=== PATIENT | male | born 1950 | race Caucasian/White ===

== ENCOUNTER 2018-02-18 09:12 | Emergency (ER) | payer OTHER, SELFPAY ==
[2018-02-18] MEDS ORDERED: KETOROLAC 30 MG/ML INJ ONE (09:53)
[2018-02-18 10:04] LABS: Absolute Lymphocytes (CBC) 1.7 K/uL (0.7-4.9); Absolute Monocytes 0.6 K/uL (0.1-1.3); Absolute Neutrophil 7.4 K/uL (1.8-8.0); Basophils % 0.9 % (0-1.3); Eosinophils % 1.6 % (0-4.4); Hematocrit 42.8 % (39.6-49.0); Lymphocytes % 16.8 % (15.3-44.8); MCH 31.3 pg (27.0-35.0); MCV 91.4 fL (80-100); MPV 8.9 fL (7.6-11.3); Monocytes % 5.9 % (3.3-12.3); RBC Red Blood Cell Count 4.68 M/uL (4.33-5.43)
[2018-02-18 10:19] LABS: Protime INR 0.95
[2018-02-18 10:20] LABS: ALT/SGPT 42 U/L (12-78); AST/SGOT 11 U/L (15-37); Albumin 4.1 g/dL (3.4-5.0); Alkaline Phosphatase 113 U/L (45-117); BUN Blood Urea Nitrogen 24 mg/dL (7-18); Bicarbonate 27 mmol/L (21-32); Bilirubin Direct < 0.1 mg/dL (0-0.2); Bilirubin Total 0.3 mg/dL (0.2-1.0); Glucose Level 269 mg/dL (74-106); Magnesium 1.8 mg/dL (1.8-2.4); NT PRO-BNP 183 pg/mL (<125); Potassium 4.8 mmol/L (3.5-5.1); Protein, Total 7.3 g/dL (6.4-8.2); Sodium Level 136 mmol/L (136-145); Troponin (Emerg Dept Use Only) < 0.02 ng/mL (0.0-0.045)
--- NOTE | 2018-02-18 11:44 | RAD REPORT ---
EXAM DESCRIPTION: CT - Chest Abdomen W Con - 02/18/2018 11:17 am CLINICAL HISTORY: Chest and abdominal pain COMPARISON: None. TECHNIQUE: Computed axial tomography the chest and abdomen obtained. 100 cc Isovue-300 administered intravenously. Oral contrast not given which limits evaluation of bowel. All CT scans are performed using dose optimization technique as appropriate and may include automated exposure control or mA/KV adjustment according to patient size. FINDINGS: A 17 millimeter opacity is present within the medial left upper lobe. The right lung is cl ear. No mediastinal or hilar lymphadenopathy is seen A pleural effusion is not seen. A pericardial effusion is not present. A displaced rib fracture is no t seen Fatty infiltration liver. The spleen, pancreas and adrenals are unremarkable Small bilateral renal cysts. No ascites 6 x 2 centimeter cystic mass containing a septation is present within the subcutaneous fat of the pos terior right mid abdomen. 1 centimeter cystic mass is present within the left posterior subcutaneous fat. The visualized bowel caliber and wall thickness is normal IMPRESSION: 17 millimeter opacity within the medial left upper lobe may represent infection. Neoplas m is considered less likely. Followup CT in 3 months recommended for re-evaluation 6 x 2 centimeter cystic mass containing a septation within the subcutaneous fat of the posterior righ t mid abdomen probably is benign. This also can be re-evaluated on the subsequent CT
[2018-02-18] MEDS ORDERED: NA CHLORIDE 0.9% 500 ML ONE (11:56)
--- NOTE | 2018-02-18 12:12 | ER ---
Nurse's Notes [facility] Name: Dirk Alcala Age: 67 yrs Sex: Male : 1950 Arrival Date: 02/18/2018 Time: :15 Bed 15 Private MD: Ahsan Hurtado T Diagnosis: Cough;Left upper lobe pulmonary opacity Presentation: 02/18 09:25 Presenting complaint: Patient states: sudden onset of L lateral chest wall pain after ss coughing this morning at 0400. Denies fever. Has had a cough for 6 weeks. Transition of care: patient was not received from another setting of care. Onset of symptoms was February 18, 2018. Risk Assessment: Do you want to hurt yourself or someone else? Patient reports no desire to harm self or others. Initial Sepsis Screen: Does the patient meet any 2 criteria? No. Patient's initial sepsis screen is negative. Does the patient have a suspected source of infection? No. Patient's initial sepsis screen is negative. Care prior to arrival: None. 09:25 Method Of Arrival: Ambulatory ss 09:25 Acuity: LIZ 3 ss Historical: - Allergies: : No Known Allergies; ss - Home Meds: : Anord 62.5 mcg daily [Active]; Ventolin Nebulizer for PRN [Active]; duloxetine 60 mg rb1 oral cpDR 1 cap once daily [Active]; losartan 100 mg oral tab 1 tab once daily [Active]; Bystolic 10 mg oral tab 1 tab once daily [Active]; metformin 750 mg Oral Tb24 1 tab TWICE A DAY [Active]; zolpidem 10 mg Oral tab 1 tab once daily [Active]; meloxicam 15 mg oral tab 1 tab once daily [Active]; Cymbalta 60 mg oral cpDR 1 cap once daily [Active]; levothyroxine 150 mcg tab 1 tab once daily [Active]; atorvastatin 80 mg oral tab 1 tab once daily [Active]; folic acid 1 mg Oral tab 1 tab once daily [Active]; amlodipine 10 mg tab 1 tab once daily [Active]; aspirin 81 mg Oral chew 1 tab once daily [Active]; - PMHx: 09:25 Hypothyroidism; Hypertension; Depression; High Cholesterol; Diabetes - NIDDM; TIA; rb1 - PSHx: :28 right shoulder; ss - Immunization history:: Adult Immunizations up to date. - Social history:: Smoking status: Patient/guardian denies using tobacco, the patient reports quitting approximately 10 years ago. - Ebola Screening: : Patient denies exposure to infectious person Patient denies travel to an Ebola-affected area in the 21 days before illness onset. Screenin:22 Abuse screen: Denies threats or abuse. Nutritional screening: No deficits noted. rb1 Tuberculosis screening: No symptoms or risk factors identified. Fall Risk None identified. Assessment: 09:22 General: Appears in no apparent distress. comfortable, Behavior is calm, cooperative, rb1 Denies fever. Pain: Complains of pain in left chest wall Pain currently is 8 out of 10 on a pain scale. Aggravated by coughing. Neuro: Level of Consciousness is awake, alert, obeys commands, Oriented to person, place, time, situation. Cardiovascular: Capillary refill < 3 seconds is brisk in bilateral fingers. Respiratory: Reports cough that is dry, hacking, Airway is patent Respiratory effort is even, unlabored, Respiratory pattern is regular, symmetrical. GI: No signs and/or symptoms were reported involving the gastrointestinal system. : No signs and/or symptoms were reported regarding the genitourinary system. Derm: Skin is dry, Skin is normal, Skin temperature is warm. 10:20 Reassessment: Patient appears in no apparent distress at this time. No changes from rb1 previously documented assessment. is at bedside. 11:20 Reassessment: Patient appears in no apparent distress at this time. Patient and/or rb1 family updated on plan of care and expected duration. Pain level reassessed. Patient is alert, oriented x 3, equal unlabored respirations, skin warm/dry/pink. 12:19 Reassessment: Patient appears in no apparent distress at this time. No changes from rb1 previously documented assessment. Vital Signs: 09:28 BP 135 / 95; Resp 20; Temp 97.6(TE); Pulse Ox 96% ; Weight 116.57 kg; Height 5 ft. 9 ss in. (175.26 cm); Pain 8/10; 10:28 BP 151 / 91; Pulse 62; Resp 17; Pulse Ox 93% on R/A; rb1 11:28 BP 161 / 79; Pulse 61; Resp 14; Pulse Ox 94% on R/A; rb1 12:00 BP 151 / 89; Pulse 62; Resp 16; Pulse Ox 93% on R/A; rb1 12:34 BP 151 / 89; Pulse 62; Resp 14; Pulse Ox 96% on R/A; Pain 2/10; rb1 09:28 Body Mass Index 37.95 (116.57 kg, 175.26 cm) ED Course: 09:15 Patient arrived in ED. sb2 09:15 Ahsan Hurtado MD is Private Physician. sb2 09:18 [facility]. cp 09:18 Eliot Horan MD is Attending Physician. cp 09:22 Patient has correct armband on for positive identification. Placed in gown. Bed in low rb1 position. Call light in reach. Side rails up X 1. front desk monitor on. Pulse ox on. NIBP on. 09:28 Triage completed. ss 09:28 Arm band placed on right wrist. ss 09:41 Hailey Lujan, KANA is Primary Nurse. rb1 09:55 Inserted saline lock: 22 gauge in left antecubital area, using aseptic technique. Blood rb1 collected. 11:16 CT completed. Patient moved to CT via wheelchair. Patient moved back from CT. bq 11:17 Chest Abdomen W Con In Process Unspecified. EDMS 12:09 Shahid Shen MD is Referral Physician. cp 12:35 No provider procedures requiring assistance completed. IV discontinued, intact, rb1 bleeding controlled, No redness/swelling at site. Pressure dressing applied. Administered Medications: 10:00 Drug: TORadol 30 mg Route: IVP; Site: left antecubital; rb1 10:15 Follow up: Response: No adverse reaction; Pain is decreased rb1 11:45 Drug: NS 0.9% 500 ml Route: IV; Rate: bolus; Site: left antecubital; rb1 12:22 Follow up: IV Status: Completed infusion rb1 Outcome: 12:11 Discharge ordered by . cp 12:35 Discharged to home ambulatory, with family. rb1 12:35 Condition: stable 12:35 Discharge instructions given to patient, Instructed on discharge instructions, follow up and referral plans. medication usage, Demonstrated understanding of instructions, follow-up care, medications, Prescriptions given X x 5 12:37 Patient left the ED. rb1 Signatures: Dispatcher [employer] EDPR Yajaira Brock bq Cady Butler RN RN Mikhail Carlos PA PA cp Barber, Rebecca, RN RN rb1 Erica Benítez sb2
--- NOTE | 2018-02-18 12:12 | EDPHYS ---
Physician Documentation [facility] Name: Dirk Alcala Age: 67 yrs Sex: Male : 1950 Arrival Date: 02/18/2018 Time: 09:15 Bed 15 Private MD: Ahsan Hurtado T ED Physician Eliot Horan HPI: 02/18 09:23 This 67 yrs old Male presents to ER via Unassigned with complaints of RIB cp PAIN. 09:25 The patient or guardian reports chest pain that is located primarily in the left lower cp lateral rib area. 09:25 Onset: this morning. The pain does not radiate. Associated signs and symptoms: cp Pertinent positives: cough, Pertinent negatives: abdominal pain, diaphoresis, lower extremity pain, lower extremity swelling, near syncope, shortness of breath, syncope. The chest pain is described as aching. Modifying factors: the symptoms are aggravated by deep breath, movement. 09:25 Patient reports having cough times 6 weeks and pain to left lower lateral rib area cp started this morning after episode of coughing. Historical: - Allergies: :28 No Known Allergies; ss - Home Meds: :25 Anord 62.5 mcg daily [Active]; Ventolin Nebulizer for PRN [Active]; duloxetine 60 mg rb1 oral cpDR 1 cap once daily [Active]; losartan 100 mg oral tab 1 tab once daily [Active]; Bystolic 10 mg oral tab 1 tab once daily [Active]; metformin 750 mg Oral Tb24 1 tab TWICE A DAY [Active]; zolpidem 10 mg Oral tab 1 tab once daily [Active]; meloxicam 15 mg oral tab 1 tab once daily [Active]; Cymbalta 60 mg oral cpDR 1 cap once daily [Active]; levothyroxine 150 mcg tab 1 tab once daily [Active]; atorvastatin 80 mg oral tab 1 tab once daily [Active]; folic acid 1 mg Oral tab 1 tab once daily [Active]; amlodipine 10 mg tab 1 tab once daily [Active]; aspirin 81 mg Oral chew 1 tab once daily [Active]; - PMHx: 09:25 Hypothyroidism; Hypertension; Depression; High Cholesterol; Diabetes - NIDDM; TIA; rb1 - PSHx: :28 right shoulder; ss - Immunization history:: Adult Immunizations up to date. - Social history:: Smoking status: Patient/guardian denies using tobacco, the patient reports quitting approximately 10 years ago. - Ebola Screening: : Patient denies exposure to infectious person Patient denies travel to an Ebola-affected area in the 21 days before illness onset. ROS: 09:30 Constitutional: Negative for body aches, chills, fever, poor PO intake. cp 09:30 Eyes: Negative for injury, pain, redness, and discharge. cp 09:30 ENT: Negative for drainage from ear(s), ear pain, sore throat, difficulty swallowing, difficulty handling secretions. 09:30 Cardiovascular: Positive for chest pain, of the left lower lateral rib area, Negative for edema, orthopnea, palpitations. 09:30 Respiratory: Positive for cough, with no reported sputum, Negative for hemoptysis, shortness of breath, wheezing. 09:30 Abdomen/GI: Negative for nausea, vomiting, and diarrhea, constipation, black/tarry stool, rectal bleeding. 09:30 Back: Negative for pain at rest, pain with movement. 09:30 : Negative for urinary symptoms, testicular pain 09:30 MS/extremity: Negative for injury or acute deformity, decreased range of motion, paresthesias. 09:30 Skin: Negative for cellulitis, rash. 09:30 Neuro: Negative for altered mental status, dizziness, headache, weakness. 09:30 All other systems are negative. Exam: 09:40 Constitutional: The patient appears in no acute distress, alert, awake, cp non-diaphoretic, non-toxic, well developed, well nourished, obese, uncomfortable. 09:40 Head/Face: Normocephalic, atraumatic. Eyes: Pupils equal round and reactive to light, cp extra-ocular motions intact. Lids and lashes normal. Conjunctiva and sclera are non-icteric and not injected. Cornea within normal limits. Periorbital areas with no swelling, redness, or edema. ENT: Nares patent. No nasal discharge, no septal abnormalities noted. Tympanic membranes are normal and external auditory canals are clear. Oropharynx with no redness, swelling, or masses, exudates, or evidence of obstruction, uvula midline. Mucous membranes moist. Neck: Trachea midline, no thyromegaly or masses palpated, and no cervical lymphadenopathy. Supple, full range of motion without nuchal rigidity, or vertebral point tenderness. No Meningismus. 09:40 Chest/axilla: Inspection: normal, Palpation: crepitus, is not appreciated, tenderness, that is moderate, of the left lateral lower rib area. 09:40 Cardiovascular: Rate: normal, Rhythm: regular, Edema: is not appreciated, JVD: is not appreciated. 09:40 Respiratory: the patient does not display signs of respiratory distress, Respirations: normal, no use of accessory muscles, no retractions, no splinting, no tachypnea, labored breathing, is not present, Breath sounds: bronchial sounds, that are mild, are heard diffusely, decreased breath sounds, are not appreciated, stridor, is not appreciated, wheezing: is not appreciated. 09:40 Abdomen/GI: Inspection: obese Bowel sounds: active, all quadrants, Palpation: abdomen is soft and non-tender, in all quadrants, rebound tenderness, is not appreciated, voluntary guarding, is not appreciated, involuntary guarding, is not appreciated. 09:40 Back: CVA tenderness, is absent, vertebral tenderness, is not appreciated. 09:40 Musculoskeletal/extremity: Exam is negative for bony tenderness, calf tenderness, decreased range of motion, deformity, injury. 09:40 Skin: cellulitis, is not appreciated, no rash present. 09:40 Neuro: Orientation: to person, place \T\ time. Mentation: is normal, Cerebellar function: is grossly normal, Motor: moves all fours, strength is normal, Sensation: is normal, Gait: is steady. 10:12 ECG was reviewed by the Attending Physician. cp Vital Signs: 09:28 BP 135 / 95; Resp 20; Temp 97.6(TE); Pulse Ox 96% ; Weight 116.57 kg; Height 5 ft. 9 ss in. (175.26 cm); Pain 8/10; 10:28 BP 151 / 91; Pulse 62; Resp 17; Pulse Ox 93% on R/A; rb1 11:28 BP 161 / 79; Pulse 61; Resp 14; Pulse Ox 94% on R/A; rb1 12:00 BP 151 / 89; Pulse 62; Resp 16; Pulse Ox 93% on R/A; rb1 12:34 BP 151 / 89; Pulse 62; Resp 14; Pulse Ox 96% on R/A; Pain 2/10; rb1 09:28 Body Mass Index 37.95 (116.57 kg, 175.26 cm) ss MDM: 09:18 Patient medically screened. cp 10:00 Differential diagnosis: acute myocardial infarction, acute pericarditis, cholecystitis, cp Cholelithiasis costochondritis, esophagitis, gastritis, pancreatitis, pleurisy, pneumonia, pneumothorax, pulmonary embolus, stable angina, thoracic aortic disection, unstable angina. 12:10 Data reviewed: vital signs, nurses notes, lab test result(s), EKG, radiologic studies, cp CT scan. 12:10 Test interpretation: by ED physician or midlevel provider: ECG. cp 12:10 Response to treatment: the patient's symptoms have markedly improved after treatment, cp VSS. Pain improved with meds. Discussed findings on Ct and need for f/u with pulmonary. Will discharge to home for continued monitoring. 02/18 09:39 Order name: Basic Metabolic Panel; Complete Time: 10:24 02/18 10:24 Interpretation: Normal except: GLUC 269; BUN 24; GFR 60. 02/18 09:39 Order name: CBC with Diff; Complete Time: 10:24 02/18 11:59 Interpretation: Normal except: STEPHANIE% 74.8. 02/18 09:39 Order name: LFT's; Complete Time: 10:24 02/18 09:39 Order name: Magnesium; Complete Time: 10:24 02/18 09:39 Order name: NT PRO-BNP; Complete Time: 10:24 02/18 09:39 Order name: PT-INR; Complete Time: 10:24 02/18 09:39 Order name: Troponin (emerg Dept Use Only); Complete Time: 10:24 02/18 09:39 Order name: D-Dimer; Complete Time: 10:24 02/18 11:10 Order name: Chest Abdomen W Con; Complete Time: 11:57 EDMS 02/18 09:39 Order name: EKG; Complete Time: 09:40 02/18 09:39 Order name: Cardiac monitoring; Complete Time: 10:39 02/18 09:39 Order name: EKG - Nurse/Tech; Complete Time: 10:39 02/18 09:39 Order name: IV Saline Lock; Complete Time: 10:08 02/18 09:39 Order name: Labs collected and sent; Complete Time: 10:08 02/18 09:39 Order name: O2 Per Protocol; Complete Time: 10:08 cp 02/18 09:39 Order name: O2 Sat Monitoring; Complete Time: 10:08 EC:12 Rate is 62 beats/min. Rhythm is regular. NH interval is normal. QRS interval is cp prolonged at 148 msec. QT interval is normal. T waves are Inverted in lead aVR. Interpreted by me. Reviewed by me. Administered Medications: 10:00 Drug: TORadol 30 mg Route: IVP; Site: left antecubital; rb1 10:15 Follow up: Response: No adverse reaction; Pain is decreased rb1 11:45 Drug: NS 0.9% 500 ml Route: IV; Rate: bolus; Site: left antecubital; rb1 12:22 Follow up: IV Status: Completed infusion rb1 Disposition: 02/19 07:45 Co-signature as Attending Physician, Eliot Horan MD. Disposition: 02/18/18 12:11 Discharged to Home. Impression: Cough, Left upper lobe pulmonary opacity. - Condition is Stable. - Discharge Instructions: Cool Mist Vaporizer, Cough, Adult. - Prescriptions for Augmentin 875- 125 mg Oral Tablet - take 1 tablet by ORAL route every 12 hours for 10 days; 20 tablet. Ultram 50 mg Oral Tablet - take 1 tablet by ORAL route every 6 hours As needed; 15 tablet. Tessalon Perles 100 mg Oral Capsule - take 2 capsule by ORAL route every 8 hours As needed; 30 capsule. Zithromax Z- Omari 250 mg Oral Tablet - take 1 tablet by ORAL route as directed for 5 days Day 1 - take two (2) tablets one time. Day 2, 3, 4 , 5 take one (1) tablet once daily.; 6 tablet. Albuterol Sulfate 90 mcg/actuation - inhale 1-2 puff by INHALATION route every 4-6 hours; 1 Inhaler. - Medication Reconciliation Form, Thank You Letter, Antibiotic Education, Prescription Opioid Use form. - Follow up: Shahid Shen MD; When: next week as scheduled; Reason: Recheck today's complaints. Signatures: Dispatcher [employer] Cady Haynes RN RN ss Page, Corey, PA PA Hailey Bowman RN RN Eliot Burnett MD MD Corrections: (The following items were deleted from the chart) 02/18 11:09 10:37 Thorax W/ Con ordered. EDMS EDMS 11:49 11:24 Thorax W/ Con+CT.RAD.BRZ ordered. EDMS EDMS 11:49 11:24 Chest Abdomen W/ Con+CT.RAD.BRZ ordered. EDTX EDMS 12:37 12:11 02/18/2018 12:11 Discharged to Home. Impression: Cough; Left upper lobe pulmonary rb1 opacity. Condition is Stable. Forms are Medication Reconciliation Form, Thank You Letter, Antibiotic Education, Prescription Opioid Use. Follow up: Shahid Shen; When: next week as scheduled; Reason: Recheck today's complaints. cp
--- NOTE | 2018-02-19 06:09 | EKG ---
Test Date: 2018-02-18 Test Time: 10:05:03 Transportation Maintenance Specialist: WINSTON MEASUREMENT RESULTS: Intervals: Rate: 62 WI: 160 QRSD: 148 QT: 458 QTc: 464 [place]: P: 38 WI: 160 QRS: -50 T: 41 INTERPRETIVE STATEMENTS: Normal sinus rhythm Right bundle branch block Left axis Abnormal ECG Compared to ECG 01/26/2015 17:17:28 no significant change from previous ECG Electronically Signed On 02-19-18 06:08:17 BUDGET EXAMINER by Khanh Gorman
== END 2018-02-18 12:37 | disposition home or self-care (01) ==
LOC: ER 09:12
DX: R91.8 Other nonspecific abnormal finding of lung field (principal); I10 Essential (primary) hypertension; E03.9 Hypothyroidism, unspecified; E78.00 Pure hypercholesterolemia, unspecified; F32.9 Major depressive disorder, single episode, unspecified; E11.9 Type 2 diabetes mellitus without complications; Z79.82 Long term (current) use of aspirin
CPT/HCPCS: 36415; 71260; 74160; 80048; 80076; 83735; 83880; 84484; 85025; 85379; 85610; 93005; 96361; 96374; 99285; Q9967

== ENCOUNTER 2019-03-24 06:04 | Emergency (ER) | payer OTHER ==
--- OUTSIDE RECORDS SUMMARY | 2019-03-24 06:07 | XMS REPORT ---
:1950 Author Organization [facility] Address [address] [place] [address] Dr. Garnett [address] [place] [id number] Care Team Providers Name Role Phone Unavailable Unavailable Unavailable Problems This patient has no known problems. Allergies, Adverse Reactions, Alerts This patient has no known allergies or adverse reactions. Medications This patient has no known medications.
[2019-03-24] MEDS ORDERED: FENTANYL CITR 100 MCG/2 ML ONE ×2 (06:34→07:25)
[2019-03-24] MEDS ORDERED: ONDANSETRON 4 MG/2 ML VIAL ONE (06:34)
[2019-03-24] MEDS ORDERED: NA CHLORIDE 0.9% 500 ML ONE ×2 (06:34→07:41)
--- NOTE | 2019-03-24 07:22 | RAD REPORT ---
EXAM DESCRIPTION: RAD - Elbow Left 3 View - 03/24/2019 7:15 am CLINICAL HISTORY: Left elbow pain status post trauma FINDINGS: No fracture or dislocation is seen.
--- NOTE | 2019-03-24 07:23 | RAD REPORT ---
EXAM DESCRIPTION: RAD - Shoulder Left 2 View - 03/24/2019 7:17 am CLINICAL HISTORY: Left shoulder pain status post fall FINDINGS: An anterior dislocation left humeral head. No fracture seen
[2019-03-24] MEDS ORDERED: KETAMINE HCL 500 MG/5 ML VIAL ONE (07:41)
--- NOTE | 2019-03-24 08:33 | RAD REPORT ---
EXAM DESCRIPTION: RAD - Shoulder 1 View - 03/24/2019 8:14 am CLINICAL HISTORY: Shoulder dislocation FINDINGS: The anterior dislocation has been reduced. Humeral head appears to lie along the superior aspect of glenohumeral joint. This probably is not sig nificant. Superior subluxation can also have this appearance.
--- NOTE | 2019-03-24 08:49 | EDPHYS ---
Physician Documentation [facility] Name: Dirk Alcala Age: 68 yrs Sex: Male : 1950 Arrival Date: 03/24/2019 Time: 06:05 Bed 8 Private MD: ED Physician Brian Mcdonald HPI: 03/24 06:27 This 68 yrs old Male presents to ER via Wheelchair with complaints of Fall la1 Injury. 06:27 Details of fall: The patient fell from an upright position, while standing. Onset: The la1 symptoms/episode began/occurred just prior to arrival, this morning. Associated injuries: The patient sustained anterior aspect of left shoulder, posterior aspect of left shoulder, left tricep and left elbow, painful injury. Severity of symptoms: At their worst the symptoms were moderate. The patient has not experienced similar symptoms in the past. Historical: - Allergies: 06:33 No Known Allergies; fc - Home Meds: 06:33 losartan 100 mg Oral tab 1 tab once daily [Active]; Bystolic 10 mg Oral tab 1 tab once fc daily [Active]; tramadol 50 mg Oral tab 1 tab as needed [Active]; metformin 750 mg Oral Tb24 1 tab twice a day [Active]; zolpidem 10 mg Oral tab 1 tab once daily [Active]; meloxicam 15 mg Oral tab 1 tab once daily [Active]; allopurinol 300 mg Oral tab 1 tab once daily [Active]; levothyroxine 150 mcg tab 1 tab once daily [Active]; atorvastatin 80 mg Oral tab 1 tab once daily [Active]; - PMHx: 06:33 COPD; Sleep Apnea; Hypertension; Diabetes - NIDDM; High Cholesterol; Hypothyroidism; fc Depression; TIA; - PSHx: 06:33 right shoulder; fc - Immunization history: Last tetanus immunization: - up to date. - Social history:: Smoking status: Patient/guardian denies using tobacco, but has a distant history of tobacco abuse, Patient uses alcohol, on a daily basis. Patient/guardian denies using street drugs. - Ebola Screening: : Patient negative for fever greater than or equal to 101.5 degrees Fahrenheit, and additional compatible Ebola Virus Disease symptoms Patient denies exposure to infectious person Patient denies travel to an Ebola-affected area in the 21 days before illness onset. ROS: 06:28 Constitutional: Negative for fever, chills, and weight loss, Eyes: Negative for injury, la1 pain, redness, and discharge, ENT: Negative for injury, pain, and discharge, Neck: Negative for injury, pain, and swelling, Cardiovascular: Negative for chest pain, palpitations, and edema, Respiratory: Negative for shortness of breath, cough, wheezing, and pleuritic chest pain, Abdomen/GI: Negative for abdominal pain, nausea, vomiting, diarrhea, and constipation, Back: Negative for injury and pain, : Negative for injury, bleeding, discharge, and swelling, Neuro: Negative for headache, weakness, numbness, tingling, and seizure. 06:28 MS/extremity: Positive for pain, of the left arm and left elbow and posterior aspect of left shoulder and anterior aspect of left shoulder, pain with ROM. Exam: 06:29 Constitutional: This is a well developed, well nourished patient who is awake, alert, la1 and in no acute distress. Head/Face: Normocephalic, atraumatic. Eyes: Pupils equal round and reactive to light, extra-ocular motions intact. Periorbital areas with no swelling, redness, or edema. ENT: Mucous membranes moist. Neck: Trachea midline neck Supple, full range of motion without nuchal rigidity, or vertebral point tenderness. No Meningismus. Chest/axilla: Normal chest wall appearance and motion. Nontender with no deformity. No lesions are appreciated. Cardiovascular: Regular rate and rhythm with a normal S1 and S2. Respiratory: Lungs have equal breath sounds bilaterally, clear to auscultation No rales, rhonchi or wheezes noted. No increased work of breathing, no retractions or nasal flaring. Abdomen/GI: Soft, non-tender, with normal bowel sounds No guarding or rebound. No evidence of tenderness throughout. Back: No spinal tenderness. No costovertebral tenderness. Full range of motion. 06:29 Musculoskeletal/extremity: ROM: limited active range of motion due to pain, in the left shoulder and elbow, limited passive range of motion due to pain, in the left shoulder and elbow, Circulation is intact in all extremities. Pulses: noted to be 3+ in the right radial artery and left radial artery, Perfusion: the extremity is pink, warm, with brisk capillary refill, the left arm Sensation intact. Vital Signs: 06:10 BP 151 / 84; Pulse 97; Resp 20; Temp 97.5; Pulse Ox 88% on R/A; Weight 118.39 kg (R); fc Height 5 ft. 9 in. (175.26 cm) (R); Pain 9/10; 06:15 Pulse Ox 91% on 3 lpm NC; fc 07:15 BP 106 / 88; Pulse 89; Resp 16; Pulse Ox 93% on R/A; Pain 9/10; hb 07:45 BP 113 / 69; Pulse 89; Resp 20; Pulse Ox 88% on R/A; Pain 7/10; hb 08:15 BP 122 / 62; Pulse 88; Resp 19; Pulse Ox 93% on 3 lpm NC; Pain 0/10; hb 08:45 BP 116 / 70; Pulse 86; Resp 17; Pulse Ox 93% on 3 lpm NC; Pain 0/10; hb 06:10 Body Mass Index 38.54 (118.39 kg, 175.26 cm) fc Helen Coma Score: 06:10 Eye Response: spontaneous(4). Verbal Response: oriented(5). Motor Response: obeys fc commands(6). Total: 15. Trauma Score (Adult): 06:10 Eye Response: spontaneous(1); Verbal Response: oriented(1); Motor Response: obeys fc commands(2); Systolic BP: > 89 mm Hg(4); Respiratory Rate: 10 to 29 per min(4); Helen Score: 15; Trauma Score: 12 Procedures: 08:03 Reduction: of the left shoulder, using traction, manipulation, external rotation and la1 traction, Immobilized with sling, Patient tolerated well. Post reduction film - reveals normal alignment. 08:03 Moderate sedation: Pre-procedure assessment: Airway assessment: able to hyperextend la1 neck, Mallampati classification of tongue size: II - faucial pillars and soft palate can be visualized, but uvula is masked by the base of the tongue, Monitoring during procedure: classroom monitor, continuous pulse oximetry, nurse at bedside at all times, Medications employed: Ketamine, 0.5 mg(s), Post-procedure assessment: the patient is moderately sedated, Respiratory status: even and unlabored, a reversal agent was not used. MDM: 06:18 Patient medically screened. la1 08:46 Data reviewed: vital signs, nurses notes, radiologic studies, I have discussed the la1 patient's presentation/case with the attending Emergency Department Physician; and as a result, I will discharge patient. Data interpreted: Pulse oximetry: on room air is 93 %. Interpretation: acceptable. Test interpretation: by ED physician or midlevel provider: plain radiologic studies. Counseling: I had a detailed discussion with the patient and/or guardian regarding: the historical points, exam findings, and any diagnostic results supporting the discharge/admit diagnosis, lab results, radiology results, the need for outpatient follow up, a orthopedic surgeon, to return to the emergency department if symptoms worsen or persist or if there are any questions or concerns that arise at home. Special discussion: Based on the history and exam findings, there is no indication for further emergent testing or inpatient evaluation. I discussed with the patient/guardian the need to see the orthopedic surgeon for further evaluation of the symptoms. 03/24 06:20 Order name: Shoulder Left (2 View) XRAY; Complete Time: 07:26 jd3 03/24 06:22 Order name: Elbow Left 3 View XRAY; Complete Time: 07:26 la1 03/24 08:03 Order name: Shoulder (1 View) XRAY; Complete Time: 08:39 la1 03/24 06:23 Order name: IV; Complete Time: 06:42 la1 03/24 07:30 Order name: Conscious Sedation: Consent please; Complete Time: 07:50 la Administered Medications: 06:42 Drug: fentaNYL (PF) 50 mcg Route: IVP; Site: right hand; jd3 07:26 Follow up: Response: No adverse reaction; Pain is unchanged, physician notified hb 06:42 Drug: Zofran 4 mg Route: IVP; Site: right hand; jd3 07:26 Follow up: Response: No adverse reaction hb 06:42 Drug: NS 0.9% 500 ml Route: IV; Rate: bolus; Site: right hand; jd3 07:26 Follow up: Response: No adverse reaction; IV Status: Completed infusion; IV Intake: hb 500ml 07:09 Drug: Ketamine 0.5 mg/kg Route: IVP; Site: right wrist; hb 07:26 Drug: fentaNYL (PF) 50 mcg {Note: RASS +1.} Route: IVP; Site: right wrist; hb 07:50 Follow up: Response: No adverse reaction; RASS: Alert and Calm (0) iw 08:48 Not Given (not needed): Ketamine 0.5 mg/kg IVP once hb Disposition: 03/24/19 08:48 Discharged to Home. Impression: Other dislocation of left shoulder joint. - Condition is Stable. - Discharge Instructions: Shoulder Dislocation, How to Use a Shoulder Immobilizer, Shoulder Pain, Shoulder Dislocation, [id number]. - Prescriptions for Tylenol- Codeine #3 300-30 mg Oral Tablet - take 2 tablets by ORAL route every 6 hours As needed; 20 tablet. - Medication Reconciliation Form, Thank You Letter, Prescription Opioid Use form. - Follow up: Private Physician; When: 2 - 3 days; Reason: Recheck today's complaints, Re-evaluation by your physician. - Problem is new. - Symptoms have improved. Addendum: 04/08/2019 19:00 Co-signature as Attending Physician, Brian harman Signatures: Dispatcher [employer] EDMS Brian Mcdonald MD MD pkl Chretien, Felicia RN RN [place], SEFERINO-C CERTIFIED PROFESSIONAL MIDWIFE-Cla1 Fanta Cowart RN RN Gee Dunn RN RN Ayleen Foster RN Corrections: (The following items were deleted from the chart) 03/24 09:04 08:48 03/24/2019 08:48 Discharged to Home. Impression: Other dislocation of left hb shoulder joint. Condition is Stable. Forms are Medication Reconciliation Form, Thank You Letter, Antibiotic Education, Prescription Opioid Use. Follow up: Private Physician; When: 2 - 3 days; Reason: Recheck today's complaints, Re-evaluation by your physician. Problem is new. Symptoms have improved. la1
--- NOTE | 2019-03-24 08:49 | ER ---
Nurse's Notes [facility] Name: Dirk Alcala Age: 68 yrs Sex: Male : 1950 Arrival Date: 03/24/2019 Time: 06:05 Bed 8 Private MD: Diagnosis: Other dislocation of left shoulder joint Presentation: 03/24 06:10 Presenting complaint: states: that pt was attempting to hang his towel over the shower rose and fell into the tub hitting his left shoulder. Thinks that it is dislocated. Denies hitting head or any LOC. Care prior to arrival: None. Mechanism of Injury: Fall from standing position. Trauma event details: Injury occurred in the [facility], Injury occurred: at home. Injury occurred: March 24, 2019 Injury occurred at: 05:30. 06:10 Acuity: LIZ 3 06:10 Method Of Arrival: Wheelchair fc 06:10 Transition of care: patient was not received from another setting of care. Onset of fc symptoms was March 24, 2019 at 05:30. Risk Assessment: Do you want to hurt yourself or someone else? Patient reports no desire to harm self or others. Initial Sepsis Screen: Does the patient meet any 2 criteria? HR > 90 bpm. Yes Does the patient have a suspected source of infection? No. Patient's initial sepsis screen is negative. Historical: - Allergies: 06:33 No Known Allergies; fc - Home Meds: 06:33 losartan 100 mg Oral tab 1 tab once daily [Active]; Bystolic 10 mg Oral tab 1 tab once fc daily [Active]; tramadol 50 mg Oral tab 1 tab as needed [Active]; metformin 750 mg Oral Tb24 1 tab twice a day [Active]; zolpidem 10 mg Oral tab 1 tab once daily [Active]; meloxicam 15 mg Oral tab 1 tab once daily [Active]; allopurinol 300 mg Oral tab 1 tab once daily [Active]; levothyroxine 150 mcg tab 1 tab once daily [Active]; atorvastatin 80 mg Oral tab 1 tab once daily [Active]; - PMHx: 06:33 COPD; Sleep Apnea; Hypertension; Diabetes - NIDDM; High Cholesterol; Hypothyroidism; fc Depression; TIA; - PSHx: :33 right shoulder; fc - Immunization history: Last tetanus immunization: - up to date. - Social history:: Smoking status: Patient/guardian denies using tobacco, but has a distant history of tobacco abuse, Patient uses alcohol, on a daily basis. Patient/guardian denies using street drugs. - Ebola Screening: : Patient negative for fever greater than or equal to 101.5 degrees Fahrenheit, and additional compatible Ebola Virus Disease symptoms Patient denies exposure to infectious person Patient denies travel to an Ebola-affected area in the 21 days before illness onset. Screenin:10 Abuse screen: Denies threats or abuse. Tuberculosis screening: No symptoms or risk fc factors identified. 06:10 Nutritional screening: No deficits noted. Fall Risk None identified. fc Assessment: 06:48 General: Appears in no apparent distress. uncomfortable, Behavior is calm, cooperative, jd3 appropriate for age. Pain: Complains of pain in left shoulder Quality of pain is described as sharp, tender. Neuro: Level of Consciousness is awake, alert, obeys commands, Oriented to person, place, time, situation, Denies LOC. Cardiovascular: Denies chest pain, Capillary refill < 3 seconds Patient's skin is warm and dry. Respiratory: Airway is patent Respiratory effort is even, unlabored, Respiratory pattern is regular, symmetrical, Denies cough, shortness of breath. GI: No signs and/or symptoms were reported involving the gastrointestinal system. Patient currently denies nausea, vomiting. : No signs and/or symptoms were reported regarding the genitourinary system. EENT: No signs and/or symptoms were reported regarding the EENT system. Derm: Skin is intact, Skin is dry, Skin is normal, Skin temperature is warm. Musculoskeletal: Circulation, motion, and sensation intact. Range of motion: intact in all extremities. 07:30 Reassessment: /Pt c/o left shoulder pain , REGINA Banda notified, repeat Fentanyl hb administered as ordered. VSS. remains at bedside. 08:00 Reassessment: REGINA Banda and Dr. Armstrong at bedside for left shoulder reduction with hb conscious sedation. See paper chart. 08:45 Reassessment: Patient appears in no apparent distress at this time. Patient and/or hb family updated on plan of care and expected duration. Pain level reassessed. Patient is alert, oriented x 3, equal unlabored respirations, skin warm/dry/pink. Patient denies pain at this time. Vital Signs: 06:10 BP 151 / 84; Pulse 97; Resp 20; Temp 97.5; Pulse Ox 88% on R/A; Weight 118.39 kg (R); fc Height 5 ft. 9 in. (175.26 cm) (R); Pain 9/10; 06:15 Pulse Ox 91% on 3 lpm NC; fc 07:15 BP 106 / 88; Pulse 89; Resp 16; Pulse Ox 93% on R/A; Pain 9/10; hb 07:45 BP 113 / 69; Pulse 89; Resp 20; Pulse Ox 88% on R/A; Pain 7/10; hb 08:15 BP 122 / 62; Pulse 88; Resp 19; Pulse Ox 93% on 3 lpm NC; Pain 0/10; hb 08:45 BP 116 / 70; Pulse 86; Resp 17; Pulse Ox 93% on 3 lpm NC; Pain 0/10; hb 06:10 Body Mass Index 38.54 (118.39 kg, 175.26 cm) fc Helen Coma Score: 06:10 Eye Response: spontaneous(4). Verbal Response: oriented(5). Motor Response: obeys fc commands(6). Total: 15. Trauma Score (Adult): 06:10 Eye Response: spontaneous(1); Verbal Response: oriented(1); Motor Response: obeys fc commands(2); Systolic BP: > 89 mm Hg(4); Respiratory Rate: 10 to 29 per min(4); Helen Score: 15; Trauma Score: 12 ED Course: 06:05 Patient arrived in ED. cl3 06:10 Patient has correct armband on for positive identification. Placed in gown. Bed in low fc position. Call light in reach. Side rails up X 1. 06:10 Patient placed in an exam room, on a stretcher. fc 06:15 Ice pack to injury. jd3 06:15 Oxygen administration via nasal cannula \T\ 3L/min. fc 06:18 [place] FNP-C is [facility]. la1 06:18 Brian Mcdonald MD is Attending Physician. la1 06:19 Gee Dunn RN is Primary Nurse. jd3 06:24 Triage completed. fc 07:12 Shoulder Left (2 View) XRAY In Process Unspecified. EDMS 07:12 Elbow Left 3 View XRAY In Process Unspecified. EDMS 08:05 Assist provider with reduction of left shoulder using manipulation, Set up for hb procedure. Performed by Olimpia Armstrong MD Immobilized with shoulder immobilizer Patient tolerated well. 08:13 Shoulder (1 View) XRAY In Process Unspecified. EDMS 09:01 IV discontinued, intact, bleeding controlled, No redness/swelling at site. Pressure hb dressing applied. Administered Medications: 06:42 Drug: fentaNYL (PF) 50 mcg Route: IVP; Site: right hand; jd3 07:26 Follow up: Response: No adverse reaction; Pain is unchanged, physician notified hb 06:42 Drug: Zofran 4 mg Route: IVP; Site: right hand; jd3 07:26 Follow up: Response: No adverse reaction hb 06:42 Drug: NS 0.9% 500 ml Route: IV; Rate: bolus; Site: right hand; jd3 07:26 Follow up: Response: No adverse reaction; IV Status: Completed infusion; IV Intake: hb 500ml 07:09 Drug: Ketamine 0.5 mg/kg Route: IVP; Site: right wrist; hb 07:26 Drug: fentaNYL (PF) 50 mcg {Note: RASS +1.} Route: IVP; Site: right wrist; hb 07:50 Follow up: Response: No adverse reaction; RASS: Alert and Calm (0) iw 08:48 Not Given (not needed): Ketamine 0.5 mg/kg IVP once hb Intake: 07:26 IV: 500ml; Total: 500ml. hb Outcome: 08:48 Discharge ordered by . la1 09:04 Discharged to home via wheelchair, with significant other. hb 09:04 Condition: stable 09:04 Discharge instructions given to patient, significant other, Instructed on discharge instructions, follow up and referral plans. medication usage, Demonstrated understanding of instructions, follow-up care, medications, Prescriptions given X 1. 09:04 Patient left the ED. hb Signatures: Dispatcher [employer] EDMS Judy Lopez RN RN Ayleen Chu RN RN iw [place], GENERAL SURGERY PHYSICIAN ASSISTANT-C GENERAL SURGERY PHYSICIAN ASSISTANT-Cla1 Fanta Cowart RN RN Gee Dunn RN RN jd3 Lewis, Charde cl3 Corrections: (The following items were deleted from the chart) 07:28 07:15 BP 106 / 88; Pulse 89bpm; Resp 16bpm; Pulse Ox 94% RA; Pain 11/14; hb hb
[2019-03-24 09:21] VITALS: TEMP 97.5
[2019-03-24 09:27] VITALS: O2SAT 93
[2019-03-24 09:28] VITALS: BP 116/70
== END 2019-03-24 09:04 | disposition home or self-care (01) ==
LOC: ER 06:04
PROC: 0RSKXZZ Reposition Left Shoulder Joint, External Approach (ICD-10-PCS; principal; 2019-03-24)
DX: S43.085A Other dislocation of left shoulder joint, initial encounter (principal); W19.XXXA Unspecified fall, initial encounter; Y93.89 Activity, other specified; Y92.9 Unspecified place or not applicable; I10 Essential (primary) hypertension; E11.9 Type 2 diabetes mellitus without complications; E03.9 Hypothyroidism, unspecified; F32.9 Major depressive disorder, single episode, unspecified; J44.9 Chronic obstructive pulmonary disease, unspecified
CPT/HCPCS: 96361; 73020; 73080; 73030; 96375; 96374; 99284; 23655; J3010 ×2; J7040 ×2; J2405

== ENCOUNTER 2021-11-16 11:28 | Observation (INO) | payer OTHER ==
--- OUTSIDE RECORDS SUMMARY | 2021-11-16 11:31 | XMS REPORT | Continuity of Care Document ---
:1950 Author Organization [facility] t Address [address] [place] [address] [address] [place] [address] Care Team Providers Name Role Phone Asked, No Pcp Primary Care Physician Unavailable HEATHER ZAMBRANO Attending Clinician Unavailable GIO EWING Attending Clinician Unavailable Sachin TAPIA, Leah Tejada Attending Clinician Jose Benítez MD Attending Clinician [phone] Hever PINTO, Saleem Rice Attending Clinician Clair Barrera MA Attending Clinician Unavailable Bebeto Taylor RN Attending Clinician Unavailable Wendy Walls MD Attending Clinician Carmen Khan MA Attending Clinician Unavailable Nasreen Whipple MA Attending Clinician Unavailable HEATHER ZAMBRANO Admitting Clinician Unavailable Payers Payer Name Policy Type Policy Number Effective Date Expiration Date S miko MEDICARE PART A [id number] 2015 \T\ B 00:00:00 Problems This patient has no known problems. Allergies, Adverse Reactions, Alerts Allergy Allergy Status Severity Reaction(s) Onset Inactive Treating Comm ents Source Name Type Date Date Clinician NO KNOWN Drug Active Univers ALLERGIE Class ity of S [facility] Social History Social Habit Start Date Stop Date Quantity Comments Source History of tobacco Current smoker [facility] use Hospital History SDOH [facility] Alcohol Std Drinks Hospit al History SDOH [facility] Alcohol Binge Hospital Alcohol intake 2021-03-18 2021-03-18 Current drinker [facility] 00:00:00 00:00:00 of alcohol Hospital (finding) Cigarettes smoked 2021-03-03 2021-03-[address] current (pack per 00:00:00 00:00:00 Hospita l day) - Reported Cigarette 2021-03-03 2021-03-03 [facility] pack-years 00:00:00 00:00:00 Hospital Tobacco use and 2021-03-03 2021-03-03 Smokeless tobacco [facility] exposure 00:00:00 00:00:00 non-user Hospital History SDOH 2021-03-03 2021-03-03 1 [facility] Alcohol Frequency 00:00:00 00:00:00 Hospita l Sex Assigned At [birth year] [facility] 00:00:00 00:00:00 Hospital Smoking Status Start Date Stop Date Source Ex-smoker 2021-03-03 00:00:00 2021-03-03 00:00:00 [facility] Medications Ordered Filled Start Stop Current Ordering Indication Dosage Frequency Signature Comments Components Source Medication Medication Date Date Medication? Clinician (SIG) Name Name famotidine 2020-03 Yes 20mg Q.5D Take 20 mg M ethodi (PEPCID) 20 2-[address] MG tablet 08:44: (two) Hospita 44 times a l day. DULoxetine 2020-03 Yes 60mg QD Take 60 mg M [facility]i (CYMBALTA) 2-[address] 60 MG 08:44: daily. Hospita capsule 25 l doxazosin 2020-03 Yes 4mg QD Take 4 mg Met [facility] (CARDURA) 4 2-[address] MG tablet 08:44: nightly. Hosp kavita 11 l amLODIPine 2020-03 Yes 10mg QD Take 10 mg M ethodi (NORVASC) 2-[address] 10 mg 08:43: daily. Hospita tablet 53 l atorvastati 2020-03 Yes 40mg Take 40 mg Methodi n (LIPITOR) 2-[address] 80 MG 08:43: Hospita tablet 52 l levothyroxi 2020-03 Yes 125ug QD Take 125 M ethodi ne 2-[address] (SYNTHROID) 08:43: mouth Hospi ta 150 mcg 31 every l tablet morning. metFORMIN 2020-03 Yes 850mg QD Take 850 Met [facility] XR 2-[address] (GLUCOPHAGE 08:43: mouth Hospi ta -XR) 750 mg 12 daily with l 24 hr breakfast. tablet losartan 2020-03 Yes 100mg QD Take 100 Meth marni (COZAAR) 2-[address] 100 MG 08:42: mouth Hospita tablet 45 daily. l metoprolol 2020-03 Yes 25mg QD Take 25 mg M ethodi succinate 2-[address] XL 08:42: daily. Hospita (TOPROL-XL) 27 l 25 mg 24 hr tablet zolpidem 2020-03 Yes 10mg QD Take 10 mg Met [facility] (AMBIEN) 10 2-[address] mg tablet 08:42: nightly as Ho spita 01 needed for l sleep. cholecalcif 2020-03 Yes Take by [facility] fiona, 2-[address] vitamin D3, 08:41: Hospit a (Vitamin 38 l D3) 125 mcg (5,000 unit) tablet albuterol 2020-03 Yes Methodi (PROAIR 0-27 st HFA) 90 00:00: Hospita mcg/actuati 00 l on inhaler Vital Signs Vital Name Observation Time Observation Value Comments Source Body height 2021-03-19 19:50:00 175.3 cm [facility] Body weight 2021-03-19 19:50:00 115.667 kg [facility] BMI 2021-03-19 19:50:00 37.66 kg/m2 [facility] Systolic blood 2021-03-03 14:38:00 169 mm[Hg] [facility] pressure Diastolic blood 2021-03-03 14:38:00 77 mm[Hg] [facility] pressure Heart rate 2021-03-03 14:38:00 66 /min [facility] Body temperature 2021-03-03 14:38:00 36.61 Kareen [facility] Respiratory rate 2021-03-03 14:38:00 17 /min [facility] Oxygen saturation in 2021-03-03 14:38:00 94 /min [facility] Arterial blood by Pulse oximetry Procedures Procedure Date / Time Performed Performing Clinician [facility] e PULMONARY FUNCTION TEST 2021-03-12 00:00:00 Provider, Historical [facility] PET CT WHOLE BODY 2021-02-12 15:48:00 Saleem Kathleen [facility] EXTERNAL STUDY PET CT SKULL BASE TO 2021-02-12 00:00:00 Provider, Historical [facility] MID THIGH Plan of Care Planned Activity Planned Date Details Comments Source Future Scheduled 2021-11-04 HEPATITIS B VACCINES Met [facility] Test 06:21:27 (1 of 3 - 3-dose series) [code = HEPATITIS B VACCINES (1 of 3 - 3-dose series)] Future Scheduled 2021-11-04 COVID-19 VACCINE (#1) [facility] Test 06:21:27 [code = COVID-19 VACCINE (#1)] Future Scheduled 2021-11-04 65+ PNEUMOCOCCAL [facility] Test 06:21:27 VACCINE (1 - PCV) [code = 65+ PNEUMOCOCCAL VACCINE (1 - PCV)] Future Scheduled 2021-11-04 Hepatitis C screening [facility] Test 06:21:27 (procedure) [code = 258984332] Future Scheduled 2021-11-04 COLONOSCOPY SCREENING [facility] Test 06:21:27 [code = COLONOSCOPY SCREENING] Future Scheduled 2021-11-04 SHINGLES VACCINES (1 Met [facility] Test 06:21:27 of 2) [code = SHINGLES VACCINES (1 of 2)] Future Scheduled 2021-11-04 INFLUENZA VACCINE Method [facility] Test 06:21:27 [code = INFLUENZA VACCINE] Encounters Start End Encounter Admission Attending Care Care Encounter Source Date/Time Date/Time Type Type Clinicians Facility Department ID 2021-07-29 [id number] Common 13:04:03 [facility] 2021-01-03 Outpatient JACOB GARY KIANNA [id number] Univers 07:19:44 HEATHER patiño [facility] 2021-05-05 2021-05-05 Outpatient AGUSTO EWING [facility] [id number] 07:45:00 23:59:00 GIO [facility] 2021-04-24 2021-04-24 Telephone Sachin, 1.2.840.1 [id number] Methodi 00:00:00 00:00:[address] 3.430.2.7 Hospit a .3.966183 l .8 2021-04-18 2021-04-18 Transcribe Jackelin, 1.2.840.1 [id number] Methodi 00:00:00 00:00:[address] Zachary 3.430.2.7 Hospi ta .3.014880 l .8 2021-03-24 2021-03-24 Extended Kathleen, 1.2.840.1 [id number] Methodi 00:00:00 00:00:00 Medical Edrhoda Crawley.H. [address]81.1.[address] Review 3.430.2.7 Hospit a .3.934903 l .8 2021-03-24 2021-03-24 Telephone Bruce, 1.2.840.1 [id number] Methodi 00:00:00 00:00:[address] 3.430.2.7 Hospit a .3.101262 l .8 2021-03-24 2021-03-24 Orders Sachin, 1.2.840.1 [id number] Methodi 00:00:00 00:00:00 Only Leah 34376.1.[address] [place]ory 3.430.2.7 Hospit a .3.349744 l .8 2021-03-19 2021-03-19 Telemedici Hever, 1.2.840.1 [id number] Methodi 13:45:00 13:57:07 ne Saleem Y.H. [address]8091.1.[address] 3.430.2.7 Hospit a .3.020940 l .8 2021-03-19 2021-03-19 [facility]ly [facility] [id number] [place] 00:00:00 00:00:[address] 2021-03-19 2021-03-19 Oncology Taylor, 1.2.840.1 [id number] 2099 [id number] Methodi 00:00:00 00:00:00 Survivorsh Bebeto 33091.1.1 614 s t ip 3.430.2.7 Hospit a .3.760316 l .8 2021-03-18 2021-03-18 Abstract Bruce, 1.2.840.1 [id number] 2100 [id number] Methodi 00:00:00 00:00:[address] 3.430.2.7 Hospit a .3.099125 l .8 2021-03-17 2021-03-17 Orders Provider, 1.2.840.1 [id number] [id number] Methodi 00:00:00 00:00:00 Only Wendy 56878.1.1 645 s t 3.430.2.7 Hospit a .3.254366 l .8 2021-03-05 2021-03-05 Telephone Bill, 1.2.840.1 [id number] 2099 [id number] Methodi 00:00:00 00:00:[address] 3.430.2.7 Hospit a .3.588948 l .8 2021-03-05 2021-03-05 Oncology Taylor, 1.2.840.1 [id number] 2099 [id number] Methodi 00:00:00 00:00:00 Survivorsh Bebeto 06279.1.1 734 s t ip 3.430.2.7 Hospit a .3.559616 l .8 2021-03-03 2021-03-03 [facility], 1.2.840.1 [id number] Methodi 08:57:02 23:59:00 Encounter Saleem Rice 07783.1.[address] 3.430.2.7 Hospit a .3.988372 l .8 2021-03-03 2021-03-03 Office Hever, 1.2.840.1 [id number] Methodi 09:00:00 15:49:07 Visit Saleem Rice 20877.1.[address] 3.430.2.7 Hospit a .3.292490 l .8 2021-03-03 2021-03-03 Outpatient HEVER, [facility] [id number] [place] 00:00:00 00:00:[address] SALEEM [address] 2021-03-03 2021-03-03 Outpatient HEVER, [facility] [id number] [place] 00:00:00 00:00:[address] 2021-03-03 2021-03-03 Oncology Taylor, 1.2.840.1 [id number] 2099 [id number] Methodi 00:00:00 00:00:00 [facility] Bebeto 45959.1.1 716 s t ip 3.430.2.7 Hospit a .3.507165 l .8 2021-03-03 2021-03-03 Travel 1.2.840.1 1.2.947.560 [id number] Methodi 00:00:00 00:00:[address] 3.430.2.7 0.2.7.3.698 Ho spita .3.129392 084.8 l .8 2021-02-19 2021-02-19 Telephone Hever, 1.2.840.5 [id number] Methodi 00:00:00 00:00:[address] 3.430.2.7 Hospit a .3.125959 l .8 2021-02-18 2021-02-18 Telephone Sarabjit, 1.2.840.1 [id number] 2099 [id number] Methodi 00:00:00 00:00:[address] 3.430.2.7 Hospit a .3.798005 l .8 2021-02-17 2021-02-17 Orders Provider, 1.2.840.1 [id number] 2099 [id number] Methodi 00:00:00 00:00:00 Only Historical 41809.1.1 185 s t 3.430.2.7 Hospit a .3.066750 l .8 2020-02-05 2020-02-05 Outpatient Amina ZAMBRANO [facility] [id number] Univers 10:15:00 10:15:[address] [facility] 2020-02-05 2020-02-05 Outpatient R [facility] [id number] Univers 10:15:00 10:15:00 [facility] 2020-01-21 2020-01-21 Outpatient R [facility] [id number] Univers 16:30:00 16:30:[id number] [facility] 2020-01-21 2020-01-21 [facility] [id number] Univers 16:30:00 16:30:[address] [facility] Results This patient has no known results.
[2021-11-16] MEDS ORDERED: MAGNESIUM SULFATE 1 gm IVPB 1 GM/100 ML BAG IV ONE (11:51)
[2021-11-16] MEDS ORDERED: METHYLPREDNISOLONE 125 MG INJ ONE (11:51)
[2021-11-16] MEDS ORDERED: LEVALBUTEROL 1.25 MG/3 ML NEB ONE (11:51)
[2021-11-16 12:06] LABS: Hematocrit 44.2 % (39.6-49.0); Lymphocytes % 9.4 % (15.3-44.8); MCV 92.2 fL (80-100); MPV 8.4 fL (7.6-11.3)
[2021-11-16 12:12] LABS: Protime INR 1.04
[2021-11-16 12:26] LABS: Albumin 3.6 g/dL (3.4-5.0); Bilirubin Direct 0.1 mg/dL (0-0.2); Bilirubin Total 0.4 mg/dL (0.2-1.0); Magnesium 2.2 mg/dL (1.8-2.4); Potassium 4.6 mmol/L (3.5-5.1); Protein, Total 7.4 g/dL (6.4-8.2)
--- NOTE | 2021-11-16 12:39 | RAD REPORT ---
EXAM DESCRIPTION: Louie Single View11/16/2021 12:16 pm CLINICAL HISTORY: Shortness breath COMPARISON: September 2021 FINDINGS: Large left pleural effusion with basilar atelectasis. Right lung appears clear. The heart size is difficult to determine secondary to the adjacent pleural effusion IMPRESSION: Large left pleural effusion
--- NOTE | 2021-11-16 13:52 | RAD REPORT ---
EXAM DESCRIPTION: CT - Chest For Pe Angio - 11/16/2021 1:33 pm CLINICAL HISTORY: Shortness of breath COMPARISON: Chest x-ray November 16, 2021 TECHNIQUE: Dynamically enhanced axial 3 mm thick images of the chest were obtained during administra tion of <100> mL Isovue 370 IV contrast. Coronal and oblique reconstruction images were generated and reviewed. Exam utilizes a protocol for optimal evaluation of pulmonary arterial tree. Maximum intensity projections 3D imaging was utilized All CT scans are performed using dose optimization technique as appropriate and may include automated exposure control or mA/KV adjustment according to patient size. FINDINGS: A pulmonary embolus is not seen. A thoracic aortic aneurysm is not noted. Large left pleural effusion with left basilar atelectasis. A pericardial effusion is not seen. Patient's known medial left upper lobe mass this present. Ground-glass opacities left upper lobe prob ably pneumonitis. IMPRESSION: Negative for a pulmonary embolism. Large left pleural effusion
--- NOTE | 2021-11-16 14:52 | ER ---
Nurse's Notes [facility] Name: Dirk Alcala Age: 71 yrs Sex: Male : 1950 Arrival Date: 11/16/2021 Time: 11:30 Bed 3 Private MD: Diagnosis: Hypoxia;Pulmonary Effusion Presentation: 11/16 11:32 Chief complaint: Patient states: was at Dr. Roberto office, sent here for 79% O2 sat aa5 and SOB. SOB noted, currently 85% RA O2 sat. Pt reports symptoms began 2 weeks ago and is taking steroids. 11:32 Coronavirus screen: shortness of breath. Ebola Screen: Patient denies travel to an [facility] Ebola-affected area in the 21 days before illness onset. Initial Sepsis Screen: Does the patient meet any 2 criteria? No. Patient's initial sepsis screen is negative. Does the patient have a suspected source of infection? No. Patient's initial sepsis screen is negative. Risk Assessment: Do you want to hurt yourself or someone else? Patient reports no desire to harm self or others. Onset of symptoms was November 16, 2021. 11:32 Method Of Arrival: Wheelchair aa5 11:32 Acuity: LIZ 1 aa5 Triage Assessment: 11:59 General: Appears distressed, uncomfortable, Behavior is cooperative, appropriate for eh3 age. Neuro: Level of Consciousness is awake, alert, obeys commands, Oriented to. Cardiovascular: Capillary refill Patient's skin is warm and dry. Respiratory: Reports shortness of breath. 12:19 Pain: Complains of pain in anterior aspect of left upper chest and left breast Pain eh3 does not radiate. Pain currently is 6 out of 10 on a pain scale. Quality of pain is described as aching, sharp, Pt states he's had left lung pain since receiving radiation for lung cancer at the beginning of 2021 Is continuous. Respiratory: Onset: The symptoms/episode began/occurred 2 weeks ago, the patient has severe shortness of breath. GI: No signs and/or symptoms were reported involving the gastrointestinal system. Abdomen is round non-distended. : No signs and/or symptoms were reported regarding the genitourinary system. Derm: No signs and/or symptoms reported regarding the dermatologic system. Musculoskeletal: Circulation, motion, and sensation intact. Range of motion: intact in all extremities. Historical: - Allergies: 11:49 No Known Allergies; aa5 - PMHx: 11:48 COPD; Depression; Diabetes - NIDDM; High Cholesterol; Hypertension; Hypothyroidism; aa5 Sleep Apnea; TIA; - Immunization history:: Adult Immunizations unknown. - Social history:: Smoking status: Patient/guardian denies using tobacco. Screenin:23 Abuse screen: Denies threats or abuse. Denies injuries from another. Nutritional eh3 screening: No deficits noted. Tuberculosis screening: No symptoms or risk factors identified. Fall Risk Secondary diagnosis (15 points) IV access (20 points). Gait- Weak (10 pts.). Total Smith Fall Scale indicates High Risk Score (45 or more points). Fall prevention measures have been instituted. Side Rails Up X 2 Placed Close to Nursing Station Frequent Obs/Assessments Occuring Family Present and informed to notify staff if the need to leave the bedside As available patient and family educated on Fall Prevention Program and Strategies. Assessment: 12:22 Reassessment: No changes from previously documented assessment. See triage assessment. eh3 12:23 Pain: Complains of pain in chest and left breast and anterior aspect of left upper eh3 chest. Cardiovascular: Rhythm is sinus rhythm. Respiratory: Airway is patent Respiratory effort is even, labored, Breath sounds with crackles in base of left lung. 13:25 Reassessment: Patient and/or family updated on plan of care and expected duration. Pain eh3 level reassessed. Patient is alert, oriented x 3, equal unlabored respirations, skin warm/dry/pink. Patient states symptoms have improved. 14:25 Reassessment: No changes from previously documented assessment. Patient and/or family jg9 updated on plan of care and expected duration. Pain level reassessed. Patient is alert, oriented x 3, equal unlabored respirations, skin warm/dry/pink. Vital Signs: 11:32 BP 105 / 67; Pulse 78; Resp 26 S; Temp 98.0(A); Pulse Ox 85% on R/A; aa5 11:34 Pulse Ox 92% on 3 lpm NC; aa5 11:48 Pulse Ox 98% on BiPAP; aa5 12:45 BP 96 / 72; Pulse 72; Resp 18; Pulse Ox 92% on BiPAP; eh3 13:45 BP 143 / 91; Pulse 75; Resp 18; Pulse Ox 96% on Non-rebreather mask; Pain 6/10; eh3 14:00 BP 126 / 75; Pulse 78; Resp 17 S; Pulse Ox 95% on BiPAP; jg9 15:00 BP 113 / 93; Pulse 68; Resp 20; Pulse Ox 93% ; eh3 15:54 BP 133 / 83; Pulse 70; Resp 23; Pulse Ox 95% on BiPAP; ld1 ED Course: 11:30 Patient arrived in ED. rg4 11:32 Fernando Del Toro PA is PHCP. jmm 11:32 Mikhail Colvin MD is Attending Physician. jmm 11:32 Arm band placed on Patient placed in an exam room, on a stretcher. aa5 11:43 Patient placed on BiPAP. Inspiratory pressure: 14. Expiratory pressure: 7. FIO2: 40. eb2 Rate: 16 Alarms Set: Alarms are set, functioning and audible at nurse's station. Other: MEASURED TIDAL VOLUME 1163, MEASURED RATE 20, MINUTE VOLUME 20.2, PIP 15. . Education provided to the patient regarding: Other: PATIENT EDUCATED ON BIPAP. PATIENT STATES THAT HE USES CPAP AT NIGHT. EDUCATED PATIENT ON PRESSURES FROM BIPAP. NO DISTRESS NOTED AT THIS TIME. AT BEDSIDE. 11:48 Triage completed. aa5 12:03 Inserted saline lock: 20 gauge in left antecubital area, using aseptic technique. ld1 12:04 Luz Montoya, RN is Primary Nurse. jg9 12:18 XRAY Chest (1 view) In Process Unspecified. EDMS 12:23 Patient has correct armband on for positive identification. Bed in low position. Call 3 light in reach. Side rails up X2. Adult w/ patient. Client placed on continuous cardiac and pulse oximetry monitoring. NIBP monitoring applied. 13:35 CT Chest For PE Angio In Process Unspecified. EDMS 13:58 Patient placed on BiPAP. Inspiratory pressure: 14. Expiratory pressure: 7. FIO2: 40. dt3 Rate: 16 Alarms Set: high pressure alarm set at 25 low pressure alarm set at 5 apnea delay alarm set at 20 Alarms are set, functioning and audible at nurse's station. Other: Pt returned to bipap post CT. pt tolerating well, . 14:51 Geraldo Zimmer is Hospitalizing Provider. jmm 17:20 No provider procedures requiring assistance completed. Patient admitted, IV remains in eh3 place. Administered Medications: 11:40 Drug: Magnesium Sulfate 1 grams Route: IVPB; Infused Over: 1 hrs; Site: right em6 antecubital; 12:54 Follow up: Response: No adverse reaction; IV Status: Completed infusion; IV Intake: ld1 100ml 15:12 Follow up: Response: No adverse reaction eh3 11:40 Drug: SOLU-Medrol (methylPrednisoLONE) 125 mg Route: IVP; Site: right antecubital; em6 13:11 Follow up: Response: No adverse reaction jg9 11:40 Drug: Xopenex (levalbuterol) (3) 1.25 mg Route: Inhalation; em6 13:11 Follow up: Response: No adverse reaction; Wheezing diminished jg9 15:12 Drug: Rocephin (cefTRIAXone) 1 grams Route: IV; Rate: calculated rate; Site: left eh3 antecubital; 15:13 Follow up: IV Status: Completed infusion 3 15:29 Follow up: Response: No adverse reaction [facility] Medication: 17:21 VIS not applicable for this client. 3 Intake: 12:54 IV: 100ml; Total: 100ml. ld1 Outcome: 14:51 Decision to Hospitalize by Provider. [facility] 17:20 Admitted to Med/surg accompanied by tech, family with patient, via wheelchair, room eh3 415, with oxygen, Report called to KANA Estrada 17:20 Condition: stable 17:20 Instructed on the need for admit. 17:[address] [facility] Signatures: Dispatcher [employer] EDMS Fernando Del Toro PA PA m Araceli Forrest, RN RN aa5 Jackie Baltazar4 Dana Harden, R/T R/T eb2 Rola Wilson RN RN ld1 Luz Montoya RN RN jg9 Kim Pena RN RN eh3 Rosy Moreland, RN RN em6 Fabiana Heard dt3 Corrections: (The following items were deleted from the chart) 12:06 11:25 Xopenex (levalbuterol) (3) 1.25 mg Inhalation em6 em6 12:22 11:59 Respiratory: Reports shortness of breath [facility] eh3
--- NOTE | 2021-11-16 14:52 | EDPHYS ---
Physician Documentation [facility] Name: Dirk Alcala Age: 71 yrs Sex: Male : 1950 Arrival Date: 11/16/2021 Time: 11:30 Bed 3 Private MD: ED Physician Mikhail Colvin HPI: 11/16 12:07 This 71 yrs old Male presents to ER via Wheelchair with complaints of Shortness Of jmm Breath. 12:07 The patient has shortness of breath at rest. Onset: The symptoms/episode began/occurred jmm gradually, 2 week(s) ago. Duration: The symptoms are continuous, and are steadily getting worse. The patient's shortness of breath is aggravated by nothing, is alleviated by nothing. Associated signs and symptoms: Pertinent positives: non-productive cough, Pertinent negatives: fever. This is a 71 year old male with a history of copd that presents to the ED with complaints of cough, sob progressively worsening over the past 2 weeks. Denies fever. Evaluated by Dr. Shen and advised to go to the ED for further evaluation. . Historical: - Allergies: 11:49 No Known Allergies; aa5 - PMHx: 11:48 COPD; Depression; Diabetes - NIDDM; High Cholesterol; Hypertension; Hypothyroidism; aa5 Sleep Apnea; TIA; - Immunization history:: Adult Immunizations unknown. - Social history:: Smoking status: Patient/guardian denies using tobacco. ROS: 12:07 Constitutional: Negative for fever, chills, and weight loss, Cardiovascular: Negative jmm for chest pain, palpitations, and edema. 12:07 Respiratory: Positive for cough, shortness of breath. 12:07 All other systems are negative. Exam: 12:07 Constitutional: This is a well developed, well nourished patient who is awake, alert, jmm and in no acute distress. Head/Face: atraumatic. Eyes: EOMI, no conjunctival erythema appreciated ENT: Moist Mucus Membranes Neck: Trachea midline, Supple Chest/axilla: Normal chest wall appearance and motion. Cardiovascular: Regular rate and rhythm. No edema appreciated 12:07 Back: Normal ROM Skin: General appearance color normal MS/ Extremity: Moves all extremities, no obvious deformities appreciated, no edema noted to the lower extremities Neuro: Awake and alert Psych: Behavior is normal, Mood is normal, Patient is cooperative and pleasant 12:07 Respiratory: moderate respiratory distress is noted, Respirations: tachypnea, Breath sounds: decreased breath sounds, that are moderate. Vital Signs: 11:32 BP 105 / 67; Pulse 78; Resp 26 S; Temp 98.0(A); Pulse Ox 85% on R/A; aa5 11:34 Pulse Ox 92% on 3 lpm NC; aa5 11:48 Pulse Ox 98% on BiPAP; aa5 12:45 BP 96 / 72; Pulse 72; Resp 18; Pulse Ox 92% on BiPAP; eh3 13:45 BP 143 / 91; Pulse 75; Resp 18; Pulse Ox 96% on Non-rebreather mask; Pain 6/10; eh3 14:00 BP 126 / 75; Pulse 78; Resp 17 S; Pulse Ox 95% on BiPAP; jg9 15:00 BP 113 / 93; Pulse 68; Resp 20; Pulse Ox 93% ; eh3 15:54 BP 133 / 83; Pulse 70; Resp 23; Pulse Ox 95% on BiPAP; ld1 MDM: 11:32 Patient medically screened. [facility] 14:50 Data reviewed: vital signs, nurses notes. Counseling: I had a detailed discussion with gloria the patient and/or guardian regarding: the historical points, exam findings, and any diagnostic results supporting the discharge/admit diagnosis, lab results, radiology results, the need for further work-up and treatment in the hospital. ED course: I discussed the patient with pulmonology who recommends admission. I contacted Dr. Zen foley with the need for admission. Patient administered ceftriaxone. Patient feels comfortable on BiPAP. Is currently satting in 95%. Will admit for malignant pulmonary effusion. 11/16 11:36 Order name: Basic Metabolic Panel; Complete Time: 12:28 [facility] 11/16 11:36 Order name: CBC with Diff; Complete Time: 12:10 [facility] 11/16 11:36 Order name: LFT's; Complete Time: 12:28 [facility] 11/16 11:36 Order name: Magnesium; Complete Time: 12:28 [facility] 11/16 11:36 Order name: NT PRO-BNP; Complete Time: 12:28 [facility] 11/16 11:36 Order name: PT-INR; Complete Time: 12:16 [facility] 11/16 11:36 Order name: Troponin HS; Complete Time: 12:28 [facility] 11/16 11:36 Order name: XRAY Chest (1 view); Complete Time: 12:40 [facility] 11/16 11:37 Order name: SARS-COV-2 RT PCR (Document "Date of Onset" if Symptomatic); Complete Time: [facility] 13:04 11/16 12:29 Order name: CT Chest For PE Angio; Complete Time: 13:54 [facility] 11/16 11:36 Order name: EKG; Complete Time: 11:36 [facility] 11/16 11:36 Order name: Cardiac monitoring; Complete Time: 12:14 [facility] 11/16 11:36 Order name: EKG - Nurse/Tech; Complete Time: 12:14 [facility] 11/16 11:36 Order name: IV Saline Lock; Complete Time: 12:14 [facility] 11/16 11:36 Order name: Labs collected and sent; Complete Time: 12:14 [facility] 11/16 11:36 Order name: O2 Per Protocol; Complete Time: 12:14 [facility] 11/16 11:36 Order name: O2 Sat Monitoring; Complete Time: 12:14 [facility] 11/16 16:33 Order name: Respiratory Therapy Consult EDMS Administered Medications: 11:40 Drug: Magnesium Sulfate 1 grams Route: IVPB; Infused Over: 1 hrs; Site: right em6 antecubital; 12:54 Follow up: Response: No adverse reaction; IV Status: Completed infusion; IV Intake: ld1 100ml 15:12 Follow up: Response: No adverse reaction eh3 11:40 Drug: SOLU-Medrol (methylPrednisoLONE) 125 mg Route: IVP; Site: right antecubital; em6 13:11 Follow up: Response: No adverse reaction j9 11:40 Drug: Xopenex (levalbuterol) (3) 1.25 mg Route: Inhalation; em6 13:11 Follow up: Response: No adverse reaction; Wheezing diminished jg9 15:12 Drug: Rocephin (cefTRIAXone) 1 grams Route: IV; Rate: calculated rate; Site: left eh3 antecubital; 15:13 Follow up: IV Status: Completed infusion eh3 15:29 Follow up: Response: No adverse reaction eh3 Disposition Summary: 11/16/21 14:51 Hospitalization Ordered Hospitalization Status: Inpatient Admission [facility] Provider: Baidoo, Geraldo jmm Location: Telemetry/MedSurg (Inpatient) jmm Condition: Stable jmm Problem: new jmm Symptoms: are unchanged jmm Bed/Room Type: Standard jmm Room Assignment: 415(11/16/21 17:02) dw Diagnosis - Hypoxia jmm - Pulmonary Effusion jmm Forms: - Medication Reconciliation Form jmm - SBAR form jmm Signatures: Dispatcher [employer] EDCuca Myers RN RN Fernando Delgado PA PA jmm Araceli Forrest RN RN aa5 Kim Pena RN RN eh3 Rosy Moreland RN RN em6 Rola Wilson RN ld1 Luz Montoya RN jg9 Corrections: (The following items were deleted from the chart) 17:02 14:51 jmm minor
[2021-11-16] MEDS ORDERED: CEFTRIAXONE 1000 MG/VIAL ONE (14:55)
--- NOTE | 2021-11-16 17:34 | P.HP ---
Certification for Inpatient Patient admitted to: Inpatient With expected LOS: <2 Midnights Practitioner: I am a practitioner with admitting privileges, knowledge of patient current condition, hospital course, and medical plan of care. Services: Services provided to patient in accordance with Admission requirements found in Title 42 Section 412.3 of the Code of Federal Regulations Patient History Date of Service: 11/16/21 Reason for admission: Shortness of breath History of Present Illness: 71-year-old patient with a history of lung cancer status post radiation therapy presented to Dr. Shen's office due to 2-week history of shortness of breath. Patient noted to be hypoxic with an oxygen saturation of 79% on room air. Dr. Shen sent patient to the ED to be evaluated for hypoxia and pleural effusion. CTA thorax done in the emergency department demonstrated large left pleural effusion. Patient was seen on BiPAP. He has mild leukocytosis and a slight increase in serum creatinine compared to baseline. Patient is hospitalized for further management. Allergies NKDA Allergy (Uncoded 01/26/15 19:58) Unknown Home Medications: Atorvastatin Calcium [Lipitor] 80 mg PO DAILY 01/27/15 Levothyroxine Sodium 150 mcg PO DAILY 01/27/15 Losartan Potassium 100 mg PO DAILY 01/27/15 Meloxicam 15 mg PO PRN 01/27/15 Metformin HCl [Metformin HCl ER] 1,500 mg PO DAILY 01/27/15 Nebivolol HCl [Bystolic] 10 mg PO DAILY 01/27/15 Tramadol HCl 50 mg PO DAILY 01/27/15 Zolpidem Tartrate 10 mg PO BEDTIME 01/27/15 allopurinoL [Allopurinol] 300 mg pe PO DAILY 01/27/15 hydrOXYzine HCL [Atarax*] 2 cap PO PRN 01/27/15 Amlodipine [Norvasc*] 5 mg PO BEDTIME #30 tab 01/28/15 Clopidogrel Bisulfate [Plavix*] 75 mg PO DAILY #30 tablet 01/28/15 Folic Acid 1 mg PO DAILY #30 tablet 01/28/15 - Past Medical/Surgical History Diabetic: No -: DM -: htn -: hyperlipidemia -: hypothyoidism -: gout -: insomnia -: Right Shoulder SX - Family History Father -: Heart disease, Hypertension, Diabetes Mother -: Heart disease, Hypertension, Lung disease - Social History Smoking Status: Former smoker Alcohol use: Yes CD- Drugs: No Caffeine use: Yes Review of Systems Other: Patient denied any fever. He endorsed sharp chest pain more located to the left anterior chest. Physical Examination - Physical Exam General: Alert, In no apparent distress, Obese HEENT: Mucous membr. moist/pink, Other (BiPAP), EOMI, Sclerae nonicteric Neck: Supple, JVD not distended Respiratory: Diminished (Bilateral, worse on the left), Other (No crackles) Cardiovascular: No edema, Regular rate/rhythm, Normal S1 S2, No murmurs Capillary refill: <2 Seconds Gastrointestinal: Normal bowel sounds, Soft and benign, Non-distended Musculoskeletal: No swelling, No tenderness Integumentary: No rashes, No cyanosis Neurological: Normal speech, Normal strength at 5/5 x4 extr, Cranial nerves 3-12 intact Lymphatics: No axilla or inguinal lymphadenopathy - Studies Laboratory Data (last 24 hrs) 11/16/21 11:48: PT 11.4, INR 1.04 11/16/21 11:48: WBC 11.00 H, Hgb 14.6, Hct 44.2, Plt Count 253 11/16/21 11:48: Sodium 136, Potassium 4.6, BUN 36 H, Creatinine 1.51 H, Glucose 188 H, Magnesium 2.2, Total Bilirubin 0.4, AST 5 L, ALT 29, Alkaline Phosphatase 108 Assessment and Plan - Problems (Diagnosis) (1) Pleural effusion, left Current Visit: Yes Status: Acute (2) History of lung cancer Current Visit: Yes Status: Acute (3) Acute respiratory failure with hypoxia Current Visit: Yes Status: Acute (4) COPD (chronic obstructive pulmonary disease) Current Visit: Yes Status: Acute (5) Acute renal failure Current Visit: Yes Status: Acute - Plan Admit patient to the medical floor. Continue BiPAP therapy and wean to oxygen by nasal cannula as tolerated. Start IV Levaquin for possible pneumonia. Pulmonary consult placed US guided thoracentesis ordered. Pleural fluid status. Bronchodilators. We will avoid IV fluid and encourage oral rehydration for acute renal failure. Monitor renal function. Patient denies he has diabetes but his blood sugar readings are elevated. We will treat hyperglycemia with insulin sliding scale. - Advance Directives Does patient have a Living Will: Yes Does patient have a Durable POA for Healthcare: No
[2021-11-16] MEDS ORDERED: ACETAMINOPHEN 500 MG TAB PO PRN (17:42)
[2021-11-16] MEDS ORDERED: GLUCAGON 1 MG/VIAL IM PRN (17:42)
[2021-11-16] MEDS ORDERED: ONDANSETRON 4 MG/2 ML VIAL IV PRN (17:42)
[2021-11-16] MEDS ORDERED: DEXTROSE 10%-WATER 500 ML IV BAG IV PRN (17:47)
[2021-11-16] MEDS ORDERED: Levofloxacin 750mg IV 750 MG/150 ML BAG IV SCH (18:00)
[2021-11-16 18:08] VITALS: BMI 38.8
[2021-11-16] MEDS: ALBUTEROL 2.5 MG/3 ML NEB SOL NEB SCH (20:00)
[2021-11-16] MEDS: IPRATROPIUM BROM 0.5MG/2.5ML NEB SCH (20:00)
[2021-11-16] MEDS: INSULIN -REGULAR HUMAN 50 UNIT/0.5 ML ML SQ SCH (21:13)
[2021-11-17] MEDS: ALBUTEROL 2.5 MG/3 ML NEB SOL NEB SCH ×3 (01:30→14:24)
[2021-11-17] MEDS: IPRATROPIUM BROM 0.5MG/2.5ML NEB SCH ×3 (01:30→14:24)
[2021-11-17 03:40] LABS: Absolute Lymphocytes (CBC) 0.9 K/uL (0.7-4.9); Hematocrit 38.9 % (39.6-49.0); Lymphocytes % 8.4 % (15.3-44.8); MCV 90.6 fL (80-100); MPV 8.4 fL (7.6-11.3); RBC Red Blood Cell Count 4.29 M/uL (4.33-5.43)
[2021-11-17 03:41] LABS: Protime INR 1.13
[2021-11-17 04:16] LABS: Magnesium 2.3 mg/dL (1.8-2.4); Phosphorus 4.5 mg/dL (2.5-4.9); Potassium 5.3 mmol/L (3.5-5.1); Thyroid Stimulating Hormone 0.322 uIU/mL (0.360-3.740)
[2021-11-17] MEDS: INSULIN -REGULAR HUMAN 50 UNIT/0.5 ML ML SQ SCH ×2 (07:30→11:22)
--- NOTE | 2021-11-17 11:55 | RAD REPORT ---
EXAM DESCRIPTION: US - Thoracentesis w/ US Guide - 11/17/2021 10:59 am CLINICAL HISTORY: Large left pleural effusion. COMPARISON: Chest For Pe Angio dated 11/16/2021 TECHNIQUE: Patient presents for ultrasound-guided left-sided thoracentesis. Patient had no contraind icated allergy or medication. Patient indicates 81 milligram aspirin daily. The ultrasound thoracentesis procedure, risks and alternatives were discussed with the patient in det ail. After answering all questions both oral and written consent were obtained. Preliminary imaging i dentified a large left-sided pleural effusion. The skin was prepped and draped in the usual sterile fashion. Under direct sonographic visualization the skin and deeper tissues were anesthetized with 1% lidocaine. Under sonographic guidance a thorace ntesis catheter was advanced into the pleural cavity. Approximately 15 mL of pleural fluid was retain ed for studies to be ordered by the referring service. Thoracentesis procedure that was then continue d with 1.5 liters of pleural fluid removed. At the conclusion of the procedure the thoracentesis cath eter was with drawn in a sterile bandage placed to the puncture site. There were no immediate complic ations. Patient was transferred back to the floor for continued care. IMPRESSION: Ultrasound-guided left-sided thoracentesis. 1.5 liters of pleural fluid removed. Approximately 15 mL of pleural fluid retained for requested laboratory studies.
[2021-11-17 12:34] LABS: Body Fluid WBC 1190 /mm^3
--- NOTE | 2021-11-17 12:36 | P.PN ---
Subjective Date of Service: 11/17/21 Chief Complaint: Left-sided pleural effusion Subjective: Improving (Patient is improving s/p thoracentesis oxygenation is improved) Review of Systems General: Weakness Respiratory: Shortness of Breath Physical Examination - Vital Signs Temperature: 97.3 F Blood Pressure: 139/67 Pulse: 86 Respirations: 16 Pulse Ox (%): 97 - Physical Exam General: Oriented x3 Respiratory: Diminished (On the left side) Cardiovascular: No edema, Regular rate/rhythm, Normal S1 S2 Assessment And Plan - Current Problems (Diagnosis) (1) Pleural effusion, left Current Visit: Yes Status: Acute Plan: Patient is 71 years of age with a history of left-sided lung cancer admitted with worsening dyspnea and massive pleural effusion on the left side s/p thoracentesis feeling much better plan to discharge home on off oxygen if he qualifies patient has a history of COPD blood sugars are elevated continue with 10 mg of prednisone we will check hemoglobin A1c no antibiotics needed as a nebulizer at home
[2021-11-17 12:58] LABS: Appearance SLT. TURBID (CLEAR); Body Fluid Source PLEURAL; Color of fluid Red (COLORLESS)
--- NOTE | 2021-11-17 14:15 | RAD REPORT ---
EXAM DESCRIPTION: RAD - Chest Single View - 11/17/2021 2:06 pm CLINICAL HISTORY: Status Post Thorocentesis COMPARISON: Portable chest 11/16/2021 TECHNIQUE: AP portable chest image was obtained 11/17/2021 2:06 pm . FINDINGS: A 3 hour post thoracentesis expiration chest film shows no left-sided pneumothorax. Pleura l effusion has significantly decreased in size of there is significant pleural fluid remaining. Cardiomediastinal silhouette is stable. Delete select IMPRESSION: No post thoracentesis pneumothorax.
--- NOTE | 2021-11-17 15:41 | EKG ---
Test Date: 2021-11-16 Test Time: 12:06:21 Search Director: RACHEL MEASUREMENT RESULTS: Intervals: Rate: 75 WA: 142 QRSD: 136 QT: 416 QTc: 464 [place]: P: 50 WA: 142 QRS: -87 T: 26 INTERPRETIVE STATEMENTS: Normal sinus rhythm Right bundle branch block Left anterior fascicular block Bifascicular block Abnormal ECG Compared to ECG 02/18/2018 10:05:03 Left anterior fascicular block now present Bifascicular block now present Electronically Signed On 11-17-21 15:39:06 CDT by Win Fernandez
[2021-11-17 16:08] VITALS: BP 135/69; TEMP 97.2
[2021-11-17 16:21] VITALS: O2SAT 95
--- NOTE | 2021-11-17 16:47 | P.DS ---
Admission Date: 11/16/21 Discharge Date: 11/17/21 Disposition: DC HOME/HOME HEALTH CARE Discharge Condition: GOOD Reason for Admission: Left-sided pleural effusion Hospital Course: Patient is a 71 year old male with a PMH of Lung cancer s/p XRT. He was sent here from his [employer] office after he was found to be short of breath. CT chest here showed a large volume pleural effusion. He underwent thoracentesis with 1.5L of fluid removed. He is feeling much better. He can be discharged today. He had a mild CANDE. Patient has been advised to hold off on losartan, HCTZ and spirolactone pending repeat renal panel. Vital Signs/Physical Exam: Temp Pulse Resp BP Pulse Ox 97.2 F 88 18 135/69 94 11/17/21 16:00 11/17/21 16:00 11/17/21 16:00 11/17/21 16:00 11/17/21 16:00 General: Alert, In no apparent distress, Cooperative, Obese, Other (speaking in full sentences) HEENT: Atraumatic, Normocephalic Respiratory: Diminished Cardiovascular: Normal pulses, Regular rate/rhythm, Normal S1 S2 Musculoskeletal: No clubbing, No swelling, No contractures Neurological: Normal speech, Sensation intact, Cranial nerves 3-12 intact Laboratory Data at Discharge: WBC 11.00 K/uL (4.3-10.9) H 11/17/21 02:51 Hgb 13.5 g/dL (13.6-17.9) L 11/17/21 02:51 Hct 38.9 % (39.6-49.0) L 11/17/21 02:51 Plt Count 227 K/uL (152-406) 11/17/21 02:51 PT 12.5 SECONDS (9.5-12.5) 11/17/21 02:51 INR 1.13 11/17/21 02:51 Sodium 136 mmol/L (136-145) 11/17/21 02:51 Potassium 5.3 mmol/L (3.5-5.1) H 11/17/21 02:51 BUN 40 mg/dL (7-18) H 11/17/21 02:51 Creatinine 1.41 mg/dL (0.55-1.3) H 11/17/21 02:51 Glucose 235 mg/dL (74-106) H 11/17/21 02:51 Phosphorus 4.5 mg/dL (2.5-4.9) 11/17/21 02:51 Magnesium 2.3 mg/dL (1.8-2.4) 11/17/21 02:51 Total Bilirubin 0.4 mg/dL (0.2-1.0) 11/16/21 11:48 AST 5 U/L (15-37) L 11/16/21 11:48 ALT 29 U/L (12-78) 11/16/21 11:48 Alkaline Phosphatase 108 U/L (45-117) 11/16/21 11:48 Home Medications: Atorvastatin Calcium [Lipitor] 40 mg PO BEDTIME 01/27/15 Levothyroxine Sodium 200 mcg PO [id number] 01/27/15 Zolpidem Tartrate 10 mg PO BEDTIME 01/27/15 Acetaminophen [Tylenol] 650 mg PO Q4HP PRN 11/16/21 Albuterol Sulfate [Proair Respiclick] 2 puff IH Q6HP PRN 11/16/21 Amlodipine [Norvasc*] 10 mg PO BEDTIME 11/16/21 Aspirin Chewable [Aspirin Chewable*] 1 tab PO DAILY 11/16/21 Cholecalciferol (Vitamin D3) [Vitamin D3] 3 tab PO DAILY 11/16/21 Doxazosin [Cardura*] 8 mg PO DAILY 11/16/21 Fluticasone/Umeclidin/Vilanter [Trelegy Ellipta 200-62.5-25] 1 puff IH NOON 11/16/21 Metoprolol Succinate 50 mg PO BID 11/16/21 predniSONE [Prednisone*] 10 mg PO DAILY 11/16/21 Albuterol Neb [Proventil 0.083% Neb Soln] 2.5 mg NEB [id number] amp 11/17/21 Followup: NONE,NONE [Primary Care Provider] -
[2021-11-17 17:31] LABS: Specific Gravity > 1.030 (1.005-1.030); Urine Bilirubin NEGATIVE (Negative); Urine Blood Negative (Negative); Urine Clarity Clear (Clear); Urine Color Light-Yellow (Yellow); Urine Glucose 2+ (Negative); Urine Mucus Slight /HPF (None Seen); Urine Protein NEGATIVE (Negative); Urine RBC <5 /HPF (None Seen); Urine Urobilinogen Normal (Normal)
[2021-11-17] MEDS ORDERED: ZOLPIDEM TARTRATE 10 MG TABLET PO SCH (21:00)
[2021-11-20 20:55] LABS: TOTAL PROTEIN, PLEURAL FLUID 4.7 g/dL
== END 2021-11-17 17:32 | disposition home or self-care (01) ==
LOC: ER 11:28 → INTOOBSV 16:19 → ERHOLD 16:19 → 4TH 17:13
PROVIDERS: ADMIT Internal Medicine; ATTEND Internal Medicine
DX: J90 Pleural effusion, not elsewhere classified (principal); J96.01 Acute respiratory failure with hypoxia; N17.9 Acute kidney failure, unspecified; R73.9 Hyperglycemia, unspecified; J44.9 Chronic obstructive pulmonary disease, unspecified; E78.5 Hyperlipidemia, unspecified; E03.9 Hypothyroidism, unspecified; M10.9 Gout, unspecified; G47.00 Insomnia, unspecified; Z85.118 Personal history of other malignant neoplasm of bronchus and lung; Z87.891 Personal history of nicotine dependence; Z79.02 Long term (current) use of antithrombotics/antiplatelets; Z79.84 Long term (current) use of oral hypoglycemic drugs; Z79.899 Other long term (current) drug therapy; Z82.49 Family history of ischemic heart disease and other diseases of the circulatory system; Z20.822 Contact with and (suspected) exposure to COVID-19; Z83.3 Family history of diabetes mellitus
CPT/HCPCS: 32555; 36415; 71045; 71275; 80048; 80076; 81001; 82042; 82150; 82945; 82947; 83036; 83615; 83735; 83880; 84100; 84157; 84443; 84484; 85025; 85610; 88108; 88305; 89050; 93005; 94660; 94760; 99291; 99292; G0378; J1815; J2930; J3475; J7614; Q9967; U0003

== ENCOUNTER 2021-11-24 08:05 | Inpatient (IN) | payer OTHER ==
--- OUTSIDE RECORDS SUMMARY | 2021-11-24 08:09 | XMS REPORT | Continuity of Care Document ---
:1950 Author Organization [facility] t Address [address] [place] [address] [address] [place] [address] Care Team Providers Name Role Phone Asked, No Pcp Primary Care Physician Unavailable HEATHER ZAMBRANO Attending Clinician Unavailable GIO EWING Attending Clinician Unavailable Sachin TAPIA, Leah Tejada Attending Clinician Jose Benítez MD Attending Clinician [phone] Hever PINTO, Saleem Rice Attending Clinician Clair Barrera MA Attending Clinician Unavailable Bebeto Taylor RN Attending Clinician Unavailable Wendy Walls MD Attending Clinician Carmen Khan MA Attending Clinician Unavailable Nasreen Whipple MA Attending Clinician Unavailable HEATHER ZAMBRANO Admitting Clinician Unavailable Payers Payer Name Policy Type Policy Number Effective Date Expiration Date S miko MEDICARE PART A [id number] 2015 \T\ B 00:00:00 Problems This patient has no known problems. Allergies, Adverse Reactions, Alerts Allergy Allergy Status Severity Reaction(s) Onset Inactive Treating Comm ents Source Name Type Date Date Clinician NO KNOWN Drug Active Univers ALLERGIE Class ity of [facility] Social History Social Habit Start Date Stop Date Quantity Comments Source History SDOH [facility] Alcohol Std Drinks Hospit al History SDOH [facility] History of tobacco Cigarette Smoker [facility] use Hospital Alcohol intake 2021-03-182021-03-18 Current drinker Metho dist 00:00:00 00:00:00 of [facility] (finding) Tobacco use and 2021-03-03 2021-03-03 Smokeless tobacco Me [facility] exposure 00:00:00 00:00:00 non-user Hospital Cigarettes smoked 2021-03-03 2021-03-[address] current (pack per 00:00:00 00:00:00 [facility] l day) - Reported Cigarette 2021-03-03 2021-03-03 [facility] pack-years 00:00:00 00:00:00 Hospital History SDOH 2021-03-03 2021-03-03 1 [facility] Alcohol Frequency 00:00:00 00:00:00 Hospita Sex Assigned At [birth year] [facility] 00:00:00 00:00:00 Hospital Smoking Status Start Date Stop Date Source Ex-smoker 2021-03-03 00:00:00 2021-03-03 00:00:00 [facility] Medications Ordered Filled Start Stop Current Ordering Indication Dosage Frequency Signature Comments Components Source Medication Medication Date Date Medication? Clinician (SIG) Name Name famotidine 2020-03 Yes 20mg Q.5D Take 20 mg M ethodi (PEPCID) 20 2-[address] MG tablet 08:44: (two) Hospita 44 times a l day. famotidine 2020-03 Yes 20mg Q.5D Take 20 mg M ethodi (PEPCID) 20 2-[address] MG tablet 08:44: (two) Hospita 44 times a l day. DULoxetine 2020-03 Yes 60mg QD Take 60 mg M ethodi (CYMBALTA) 2-[address] 60 MG 08:44: daily. Hospita capsule 25 l DULoxetine 2020-03 Yes 60mg QD Take 60 mg M ethodi (CYMBALTA) 2-[address] 60 MG 08:44: daily. Hospita capsule 25 l doxazosin 2020-03 Yes 4mg QD Take 4 mg Met hodi (CARDURA) 4 2-[address] MG tablet 08:44: nightly. Hosp kavita 11 l doxazosin 2020-03 Yes 4mg QD Take 4 mg Met hodi (CARDURA) 4 2-[address] MG tablet 08:44: nightly. Hosp kavita 11 l amLODIPine 2020-03 Yes 10mg QD Take 10 mg M ethodi (NORVASC) 2-[address] 10 mg 08:43: daily. Hospita tablet 53 l amLODIPine 2020-03 Yes 10mg QD Take 10 mg M ethodi (NORVASC) 2-[address] 10 mg 08:43: daily. Hospita tablet 53 l atorvastati 2020-03 Yes 40mg Take 40 mg Methodi n (LIPITOR) 2-[address] 80 MG 08:43: Hospita tablet 52 l atorvastati 2020-03 Yes 40mg Take 40 mg Methodi n (LIPITOR) 2-[address] 80 MG 08:43: Hospita tablet 52 l levothyroxi 2020-03 Yes 125ug QD Take 125 M ethodi ne 2-[address] (SYNTHROID) 08:43: mouth Hospi ta 150 mcg 31 every l tablet morning. levothyroxi 2020-03 Yes 125ug QD Take 125 M ethodi ne 2-[address] (SYNTHROID) 08:43: mouth Hospi ta 150 mcg 31 every l tablet morning. metFORMIN 2020-03 Yes 850mg QD Take 850 Met hodi XR 2-[address] (GLUCOPHAGE 08:43: mouth Hospi ta -XR) 750 mg 12 daily with l 24 hr breakfast. tablet metFORMIN 2020-03 Yes 850mg QD Take 850 Met hodi XR 2-[address] (GLUCOPHAGE 08:43: mouth Hospi ta -XR) 750 mg 12 daily with l 24 hr breakfast. tablet losartan 2020-03 Yes 100mg QD Take 100 Meth marni (COZAAR) 2-[address] 100 MG 08:42: mouth Hospita tablet 45 daily. l losartan 2020-03 Yes 100mg QD Take 100 Meth marni (COZAAR) 2-[address] 100 MG 08:42: mouth Hospita tablet 45 daily. l metoprolol 2020-03 Yes 25mg QD Take 25 mg M ethodi succinate 2-[address] XL 08:42: daily. Hospita (TOPROL-XL) 27 l 25 mg 24 hr tablet metoprolol 2020-03 Yes 25mg QD Take 25 mg M ethodi succinate 2-[address] XL 08:42: daily. Hospita (TOPROL-XL) 27 l 25 mg 24 hr tablet zolpidem 2020-03 Yes 10mg QD Take 10 mg Met hodi (AMBIEN) 10 2-[address] mg tablet 08:42: nightly as Ho spita 01 needed for l sleep. zolpidem 2020-03 Yes 10mg QD Take 10 mg Met hodi (AMBIEN) 10 2-[address] mg tablet 08:42: nightly as Ho spita 01 needed for l sleep. cholecalcif 2020-03 Yes Take by Met hodi fiona, 05-[address] vitamin D3, 08:41: Hospit a (Vitamin 38 l D3) 125 mcg (5,000 unit) tablet cholecalcif 2020-03 Yes Take by Met hodi fiona, 05-[address] vitamin D3, 08:41: Hospit a (Vitamin 38 l D3) 125 mcg (5,000 unit) tablet albuterol 2020-03 Yes Methodi (PROAIR 0-27 st HFA) 90 00:00: Hospita mcg/actuati 00 l on inhaler albuterol 2020-03 Yes Methodi (PROAIR 0-27 st HFA) 90 00:00: Hospita mcg/actuati 00 l on inhaler Vital Signs Vital Name Observation Time Observation Value Comments Source Body height 2021-03-19 19:50:00 175.3 cm [facility] Body weight 2021-03-19 19:50:00 115.667 kg [facility] BMI 2021-03-19 19:50:00 37.66 kg/m2 [facility] Systolic blood 2021-03-03 14:38:00 169 mm[Hg] [facility] pressure Diastolic blood 2021-03-03 14:38:00 77 mm[Hg] [facility] pressure Heart rate 2021-03-03 14:38:00 66 /min [facility] Body temperature 2021-03-03 14:38:00 36.61 Kareen [facility] Respiratory rate 2021-03-03 14:38:00 17 /min [facility] Oxygen saturation in 2021-03-03 14:38:00 94 /min [facility] Arterial blood by Pulse oximetry Procedures Procedure Date / Time Performed Performing Clinician [facility] e PULMONARY FUNCTION TEST 2021-03-12 00:00:00 Provider, Historical [facility] PET CT WHOLE BODY 2021-02-12 15:48:00 Saleem Kathleen [facility] EXTERNAL STUDY PET CT SKULL BASE TO 2021-02-12 00:00:00 Provider, Historical [facility] MID THIGH Plan of Care Planned Activity Planned Date Details Comments Source Future Scheduled 2021-11-24 HEPATITIS B VACCINES Met [facility] Test 08:09:06 (1 of 3 - 3-dose series) [code = HEPATITIS B VACCINES (1 of 3 - 3-dose series)] Future Scheduled 2021-11-24 COVID-19 VACCINE (#1) [facility] Test 08:09:06 [code = COVID-19 VACCINE (#1)] Future Scheduled 2021-11-24 65+ PNEUMOCOCCAL [facility] Test 08:09:06 VACCINE (1 - PCV) [code = 65+ PNEUMOCOCCAL VACCINE (1 - PCV)] Future Scheduled 2021-11-24 Hepatitis C screening [facility] Test 08:09:06 (procedure) [code = 383538867] Future Scheduled 2021-11-24 COLONOSCOPY SCREENING [facility] Test 08:09:06 [code = COLONOSCOPY SCREENING] Future Scheduled 2021-11-24 SHINGLES VACCINES (1 Met [facility] Test 08:09:06 of 2) [code = SHINGLES VACCINES (1 of 2)] Future Scheduled 2021-11-24 INFLUENZA VACCINE Method [facility] Test 08:09:06 [code = INFLUENZA VACCINE] Future Scheduled 2021-11-04 HEPATITIS B VACCINES Met [facility] Test 06:21:27 (1 of 3 - 3-dose series) [code = HEPATITIS B VACCINES (1 of 3 - 3-dose series)] Future Scheduled 2021-11-04 COVID-19 VACCINE (#1) [facility] Test 06:21:27 [code = COVID-19 VACCINE (#1)] Future Scheduled 2021-11-04 65+ PNEUMOCOCCAL [facility] Test 06:21:27 VACCINE (1 - PCV) [code = 65+ PNEUMOCOCCAL VACCINE (1 - PCV)] Future Scheduled 2021-11-04 Hepatitis C screening [facility] Test 06:21:27 (procedure) [code = [id number]] Future Scheduled 2021-11-04 COLONOSCOPY SCREENING [facility] Test 06:21:27 [code = COLONOSCOPY SCREENING] Future Scheduled 2021-11-04 SHINGLES VACCINES (1 Met [facility] Test 06:21:27 of 2) [code = SHINGLES VACCINES (1 of 2)] Future Scheduled 2021-11-04 INFLUENZA VACCINE [facility] Test 06:21:27 [code = INFLUENZA VACCINE] Encounters Start End Encounter Admission Attending Care Care Encounter Source Date/Time Date/Time Type Type Clinicians Facility Department ID 2021-07-29 Outpatient [facility] [id number] Common 13:04:03 [facility] 2021-01-03 Outpatient Amina ZAMBRANO NDTAI HUTCHISON [id number] Univers 07:19:44 HEATHER patiño [facility] 2021-05-05 2021-05-05 Outpatient CONNIE EWINGSE [facility] [id number] 07:45:00 23:59:00 [facility] 2021-04-24 2021-04-24 Telephone [place], 1.2.840.1 [id number] [id number] Methodi 00:00:00 00:00:[address] [place] 3.430.2.7 Hospit a .3.393635 l .8 2021-04-24 2021-04-24 Telephone [place], 1.2.840.1 [id number] 2100 [id number] Methodi 00:00:00 00:00:[address] [place] 3.430.2.7 Hospit a .3.180843 l .8 2021-04-18 2021-04-18 Transcribe Jackelin, 1.2.840.1 [id number] Methodi 00:00:00 00:00:00 Dennise Garcia [address]189.1.[address] [place] 3.430.2.7 Hospi ta .3.967926 l .8 2021-04-18 2021-04-18 Transcribe Jackelin, 1.2.840.1 [id number] Methodi 00:00:00 00:00:[address] [place] 3.430.2.7 Hospi ta .3.134655 l .8 2021-03-24 2021-03-24 Extended Kathleen, 1.2.840.1 [id number] Methodi 00:00:00 00:00:00 Medical Edward Y.H. 57731.1.[address] Review 3.430.2.7 Hospit a .3.629202 l .8 2021-03-24 2021-03-24 Extended Kathleen, 1.2.840.1 [id number] [id number] Methodi 00:00:00 00:00:00 Medical Edward Y.H. [address]3521.1.[address] Review 3.430.2.7 Hospit a .3.024452 l .8 2021-03-24 2021-03-24 Telephone Bruce, 1.2.840.1 [id number] [id number] Methodi 00:00:00 00:00:[address] 3.430.2.7 Hospit a .3.561089 l .8 2021-03-24 2021-03-24 Orders [place], 1.2.840.1 [id number] Methodi 00:00:00 00:00:00 Only Leah 62346.1.[address] [place] 3.430.2.7 Hospit a .3.150142 l .8 2021-03-24 2021-03-24 Telephone Bruce, 1.2.840.1 [id number] 049 [id number] Methodi 00:00:00 00:00:[address] 3.430.2.7 Hospit a .3.210640 l .8 2021-03-24 2021-03-24 Orders [place], 1.2.840.1 [id number] Methodi 00:00:00 00:00:00 Only Leah 80717.1.[address] [place] 3.430.2.7 Hospit a .3.053430 l .8 2021-03-19 2021-03-19 Telemedici Kathleen, 1.2.840.1 [id number] Methodi 13:45:00 13:57:07 ne Saleem Crawley.H. [address]808.1.[address] 3.430.2.7 Hospit a .3.299999 l .8 2021-03-19 2021-03-19 Telemedici Kathleen, 1.2.840.1 [id number] [id number] Methodi 13:45:00 13:57:07 ne Saleem Crawley.H. 24030.1.[address] 3.430.2.7 Hospit a .3.739725 l .8 2021-03-19 2021-03-19 Oncology Taylor, 1.2.840.1 [id number] 2099 [id number] Methodi 00:00:00 00:00:00 Survivorsh Bebeto 99045.1.1 614 s t ip 3.430.2.7 Hospit a .3.727495 l .8 2021-03-19 2021-03-19 Oncology Taylor, 1.2.840.1 [id number] 2099 [id number] Methodi 00:00:00 00:00:00 Survivorsh Bebeto 56357.1.1 614 s t ip 3.430.2.7 Hospit a .3.008037 l .8 2021-03-18 2021-03-18 Abstract Bruce, 1.2.840.1 [id number] 2099 [id number] Methodi 00:00:00 00:00:[address] 3.430.2.7 Hospit a .3.966524 l .8 2021-03-18 2021-03-18 Abstract Bruce, 1.2.840.1 [id number] 2099 [id number] Methodi 00:00:00 00:00:[address] 3.430.2.7 Hospit a .3.361949 l .8 2021-03-17 2021-03-17 Orders Provider, 1.2.840.1 [id number] 2100 [id number] Methodi 00:00:00 00:00:00 Only Historical 85952.1.1 645 s t 3.430.2.7 Hospit a .3.482786 l .8 2021-03-17 2021-03-17 Orders Provider, 1.2.840.1 [id number] 2099 [id number] Methodi 00:00:00 00:00:00 Only Historical 31067.1.1 645 s t 3.430.2.7 Hospit a .3.247355 l .8 2021-03-05 2021-03-05 Telephone Bill, 1.2.840.1 [id number] 2099 [id number] Methodi 00:00:00 00:00:[address] 3.430.2.7 Hospit a .3.014827 l .8 2021-03-05 2021-03-05 Oncology Taylor, 1.2.840.1 [id number] 2099 [id number] Methodi 00:00:00 00:00:00 Princeh Bebeto 55715.1.1 734 s t ip 3.430.2.7 Hospit a .3.208716 l .8 2021-03-05 2021-03-05 Telephone Bill, 1.2.840.1 [id number] 2099 [id number] Methodi 00:00:00 00:00:[address] 3.430.2.7 Hospit a .3.926898 l .8 2021-03-05 2021-03-05 Oncology Taylor, 1.2.840.1 [id number] 2099 [id number] Methodi 00:00:00 00:00:00 Survivorsh Bebeto 50105.1.1 734 s t ip 3.430.2.7 Hospit a .3.309253 l .8 2021-03-03 2021-03-03 Hospital Hever, 1.2.840.1 [id number] Methodi 08:57:02 23:59:00 Robi Rice 39952.1.[address] 3.430.2.7 Hospit a .3.391316 l .8 2021-03-03 2021-03-03 [facility], 1.2.840.1 [id number] Methodi 08:57:02 23:59:00 Encounter Saleem MoralesH. 50146.1.[address] 3.430.2.7 Hospit a .3.154366 l .8 2021-03-03 2021-03-03 Office Kathleen, 1.2.840.1 [id number] Methodi 09:00:00 15:49:07 Visit Saleem MoralesH. 92724.1.[address] 3.430.2.7 Hospit a .3.203649 l .8 2021-03-03 2021-03-03 Office [facility], 1.2.840.1 [id number] Methodi 09:00:00 15:49:07 Visit Saleem MoralesH. 61361.1.[address] 3.430.2.7 Hospit a .3.968982 l .8 2021-03-03 2021-03-03 Oncology Taylor, 1.2.840.1 [id number] 2099 [id number] Methodi 00:00:00 00:00:00 Survivorsh Bebeto 66764.1.1 716 s t ip 3.430.2.7 Hospit a .3.627734 l .8 2021-03-03 2021-03-03 Travel 1.2.840.1 1.2.262.863 6593 [id number] Methodi 00:00:00 00:00:[address] 3.430.2.7 0.2.7.3.698 Ho spita .3.858440 084.8 l .8 2021-03-03 2021-03-03 Oncology Taylor, 1.2.840.1 [id number] 2099 [id number] Methodi 00:00:00 00:00:00 Survivorsh Bebeto 59875.1.1 716 s t ip 3.430.2.7 Hospit a .3.950261 l .8 2021-03-032021-03-03 Travel 1.2.840.1 1.2.518.841 9742 [id number] Methodi 00:00:00 00:00:[address] 3.430.2.7 0.2.7.3.698 Ho spita .3.111567 084.8 l .8 2021-02-19 2021-02-19 Telephone Kathleen, 1.2.840.4 [id number] [id number] Methodi 00:00:00 00:00:00 Edrhoda Crawley.H. [address] 3.430.2.7 Hospit a .3.686830 l .8 2021-02-19 2021-02-19 Telephone Kathleen, 1.2.840.2 [id number] 755 [id number] Methodi 00:00:00 00:00:00 Edrhoda [address]ley.[address] 3.430.2.7 Hospit a .3.007872 l .8 2021-02-18 2021-02-18 Telephone Sarabjit, 1.2.840.1 [id number] 2099 [id number] Methodi 00:00:00 00:00:[address] 3.430.2.7 Hospit a .3.070963 l .8 2021-02-18 2021-02-18 Telephone Sarabjit, 1.2.840.1 [id number] 2099 [id number] Methodi 00:00:00 00:00:[address] 3.430.2.7 Hospit a .3.006195 l .8 2021-02-17 2021-02-17 Orders Provider, 1.2.840.1 [id number] 2099 [id number] Methodi 00:00:00 00:00:00 Only Historical 13384.1.1 185 s t 3.430.2.7 Hospit a .3.588338 l .8 2021-02-17 2021-02-17 Orders Provider, 1.2.840.1 [id number] 2099 [id number] Methodi 00:00:00 00:00:00 Only Historical 77802.1.1 185 s t 3.430.2.7 Hospit a .3.119097 l .8 2020-02-05 2020-02-05 Outpatient R KENYA [facility] [id number] Univers 10:15:00 10:15:00 HEATHER [facility] 2020-02-05 2020-02-05 Outpatient R [facility] [id number] Univers 10:15:00 10:15:00 [facility] 2020-01-21 2020-01-21 Outpatient R [facility] [id number] Univers 16:30:00 16:30:00 [id number] [facility] 2020-01-21 2020-01-21 Outpatient R KENYA [facility] [id number] Univers 16:30:00 16:30:00 HEATHER [facility] Results This patient has no known results.
[2021-11-24] MEDS ORDERED: ASPIRIN 81 MG CHEWABLE TABLET ONE (08:34)
[2021-11-24 08:35] LABS: Hematocrit 40.4 % (39.6-49.0); Lymphocytes % 21.2 % (15.3-44.8); MCV 90.3 fL (80-100); RBC Red Blood Cell Count 4.48 M/uL (4.33-5.43)
[2021-11-24 08:42] LABS: Protime INR 0.99
[2021-11-24 08:47] LABS: SARS-CoV-2 Antigen Rapid Res Negative (Negative)
[2021-11-24 08:55] LABS: Bilirubin Direct 0.1 mg/dL (0-0.2); Bilirubin Total 0.4 mg/dL (0.2-1.0); Magnesium 1.9 mg/dL (1.8-2.4); Potassium 4.1 mmol/L (3.5-5.1); Protein, Total 6.5 g/dL (6.4-8.2)
[2021-11-24 08:57] LABS: Troponin High Sensitivity 73.6 pg/mL (<58.9)
--- NOTE | 2021-11-24 09:25 | RAD REPORT ---
EXAM DESCRIPTION: RAD - Chest Single View - 11/24/2021 9:06 am CLINICAL HISTORY: SOB, history of lung cancer COMPARISON: CT chest November 16, portable chest November 17 TECHNIQUE: AP portable chest image was obtained 11/24/2021 9:06 am . FINDINGS: Right lung field is clear. Chronic interstitial lung pattern matches comparison. Uppermost left lung field is also clear. There is a large left pleural effusion with left lower lobe atelectas is. Lingula atelectasis is likely present as well. Findings are very similar to the prior imaging. Cardiac silhouette is prominent. Central vasculature is prominent. Heart size cannot be accurately me asured due to the large left pleural effusion. No pneumothorax. IMPRESSION: Large left pleural effusion with left lower lobe and lingula atelectasis similar to the comparison imaging. Cardiomegaly is suspected. This is difficult to evaluate due to the pleural fluid. A failure or volum e overload component cannot be excluded.
[2021-11-24] MEDS ORDERED: FUROSEMIDE 100 MG/10 ML VIAL IV ONE (09:44)
--- NOTE | 2021-11-24 09:45 | ER ---
Nurse's Notes [facility] Name: Dirk Alcala Age: 71 yrs Sex: Male : 1950 Arrival Date: 11/24/2021 Time: 08:07 Bed 2 Private MD: Diagnosis: Acute and chronic respiratory failure with hypoxia;Recurrent large left pleural effusion Presentation: 11/24 08:17 Chief complaint: Patient states: SOB for the last week worse this am. Pt with Hx of jh6 lung CA and had fluid removed from rt lung last week. Pt on home O2 and states on a good day his O2 stat is 88-89%,. Pt only able to speak in broken sentnces with O2 initially 72%. Pt placed on monitor venti mask while preparing bi pap. Coronavirus screen: Vaccine status: Patient reports receiving the 2nd dose of the covid vaccine. Ebola Screen: Patient negative for fever greater than or equal to 101.5 degrees Fahrenheit, and additional compatible Ebola Virus Disease symptoms Patient denies exposure to infectious person. Patient denies travel to an Ebola-affected area in the 21 days before illness onset. Initial Sepsis Screen: Does the patient meet any 2 criteria? RR > 20 per min. HR > 90 bpm. Yes Does the patient have a suspected source of infection? No. Patient's initial sepsis screen is negative. Risk Assessment: Do you want to hurt yourself or someone else? Patient reports no desire to harm self or others. Onset of symptoms. 08:17 Method Of Arrival: Ambulatory [facility] 08:17 Acuity: LIZ 2 [facility] Triage Assessment: 08:22 General: Appears distressed, uncomfortable, Behavior is cooperative, anxious. Pain: 6 Complains of pain in left scapular area, right scapular area, left subscapular area and right subscapular area Pain currently is 6 out of 10 on a pain scale. Quality of pain is described as sharp, Is continuous, chronic. Respiratory: Reports shortness of breath at rest on exertion labored breathing since last week pain with cough pain with movement pain with respiration Airway is patent Trachea midline Respiratory effort is labored, with retractions, shallow, Respiratory pattern is regular, symmetrical, tachypnea Onset: The symptoms/episode began/occurred suddenly, the patient has severe shortness of breath. Historical: - Allergies: 08:20 No Known Allergies; jl7 - PMHx: 08:20 COPD; Depression; Diabetes - NIDDM; High Cholesterol; Hypertension; Hypothyroidism; jl7 Sleep Apnea; TIA; - Immunization history:: Adult Immunizations up to date. - Social history:: Smoking status: Patient denies any tobacco usage or history of. Screenin:20 Abuse screen: Denies threats or abuse. Denies injuries from another. Nutritional jl7 screening: No deficits noted. Tuberculosis screening: No symptoms or risk factors identified. Fall Risk IV access (20 points). Total Smith Fall Scale indicates No Risk (0-24 pts). Assessment: 08:19 Reassessment: Pt noted to be 72% on venti mask at 15 lpm, pt placed on CPAP while jl7 awaiting RT. 08:28 Reassessment: RT at bedside. jl7 09:30 Reassessment: Patient appears in no apparent distress at this time. Patient and/or jl7 family updated on plan of care and expected duration. Pain level reassessed. Patient is alert, oriented x 3, equal unlabored respirations, skin warm/dry/pink. Patient states symptoms have improved. 10:00 Cardiovascular: Rhythm is regular. Respiratory: Airway is patent Respiratory effort is jl7 even, labored, Respiratory pattern is symmetrical, tachypnea Breath sounds are diminished. 10:30 Reassessment: Patient appears in no apparent distress at this time. No changes from jl7 previously documented assessment. Patient and/or family updated on plan of care and expected duration. Pain level reassessed. Patient is alert, oriented x 3, equal unlabored respirations, skin warm/dry/pink. 11:30 Reassessment: Patient appears in no apparent distress at this time. No changes from jl7 previously documented assessment. Patient and/or family updated on plan of care and expected duration. Pain level reassessed. Patient is alert, oriented x 3, equal unlabored respirations, skin warm/dry/pink. 12:30 Reassessment: Patient appears in no apparent distress at this time. No changes from jl7 previously documented assessment. Patient and/or family updated on plan of care and expected duration. Pain level reassessed. Patient is alert, oriented x 3, equal unlabored respirations, skin warm/dry/pink. 19:31 General: Appears uncomfortable, obese, Behavior is cooperative, appropriate for age. aa9 Neuro: Level of Consciousness is awake, alert, obeys commands. Respiratory: Airway is patent Respiratory effort is even, Respiratory pattern is symmetrical, tachypnea Patient placed CPAP:. 20:20 General: Report called to xavier Alvarez aware of need for admit, patient stable. aa9 21:07 General: Pt transported up to room 415 via hospital bed, on non re breather 15 L/min, aa9 with tech pt VS stable. Vital Signs: 08:17 BP 118 / 78; Pulse 95; Resp 36; Temp 98.5(O); Pulse Ox 72% on Venturi mask; Weight jh6 120.2 kg; Height 5 ft. 7 in. (170.18 cm); Pain 8/10; 10:20 BP 124 / 76; Pulse 79; Resp 25; Pulse Ox 98% on CPAP; jl7 11:00 BP 113 / 78; Pulse 85; Resp 19; Pulse Ox 96% ; jl7 11:30 BP 131 / 90; Pulse 81; Resp 24; Pulse Ox 97% ; jl7 12:00 BP 140 / 84; Pulse 83; Resp 24; Pulse Ox 98% on CPAP; jl7 19:29 BP 121 / 78; Pulse 80; Resp 28 S; Pulse Ox 94% on CPAP; Pain 0/10; aa9 08:17 Body Mass Index 41.50 (120.20 kg, 170.18 cm) jh6 ED Course: 08:07 Patient arrived in ED. rg4 08:08 Love Buenrostro, RN is Primary Nurse. jl7 08:08 Neda Campbell MD is Attending Physician. sd2 08:09 EKG done, by ED staff, reviewed by Neda Campbell MD. mb4 08:20 Patient has correct armband on for positive identification. Placed in gown. Bed in low jl7 position. Call light in reach. Side rails up X 1. Client placed on continuous cardiac and pulse oximetry monitoring. NIBP monitoring applied. 08:22 Triage completed. jh6 08:24 Arm band placed on left wrist. Patient placed in the treatment room, on oxygen, on jh6 cardiac specialist, on pulse oximetry. EKG completed in triage. Results shown to MD. 08:24 Inserted saline lock: 20 gauge in left antecubital area, using aseptic technique. Blood 6 collected. 09:08 XRAY Chest (1 view) In Process Unspecified. EDMS 09:44 Geraldo Zimmer is Hospitalizing Provider. sd2 13:00 No provider procedures requiring assistance completed. Patient admitted, IV remains in jl7 place. intact, No redness/swelling at site. Administered Medications: 09:38 Drug: Lasix (furosemide) 80 mg Route: IVP; Site: left antecubital; [facility] 12:02 Follow up: Response: No adverse reaction jl7 13:30 Drug: Aspirin Chewable Tablet 324 mg Route: PO; jl7 Medication: 08:20 VIS not applicable for this client. 7 Output: 11:30 Urine: 900ml (Voided); Total: 900ml. [facility] Outcome: 09:45 Decision to Hospitalize by Provider. sd2 13:00 Admitted to ER Hold. Please see [facility] for further documentation. jl7 13:00 Condition: stable 13:00 Discharge instructions given to patient, family, Instructed on the need for admit, Demonstrated understanding of instructions. 21:09 Patient left the ED. aa9 Signatures: Dispatcher [employer] EDMS Jackie Baltazar rg4 Love Buenrostro RN RN jl7 Alem Cowart mb4 Luz Arrington RN RN jh6 Neda Campbell MD MD ri2 Becca Guevara, RN RN aa9
--- NOTE | 2021-11-24 09:45 | EDPHYS ---
Physician Documentation [facility] Name: Dirk Alcala Age: 71 yrs Sex: Male : 1950 Arrival Date: 11/24/2021 Time: 08:07 Bed 2 Private MD: ED Physician Neda Campbell HPI: 11/24 08:30 This 71 yrs old Male presents to ER via Ambulatory with complaints of Breathing sd2 Difficulty. 08:30 71-year-old male presents with chief complaint of shortness of breath. Patient reports sd2 he was recently discharged from the hospital and had 1-1/2 L of fluid removed from his left lung during that visit. He does have a history of prior lung cancer but they are currently awaiting the results of the fluid testing. He reports his shortness of breath was never really significantly improved at time of discharge and has progressively worsened since then. He was found to be tachypneic with an O2 saturation in the 70s upon arrival. They report they have not been able to get his O2 saturation at home over 90% despite his home oxygen. The patient has had a nonproductive cough without fever. He also endorses chest pain. He does have chronic chest pain due to his prior lung cancer treatments on the right side but now also has pain on the left side. He denies any vomiting, diarrhea or urinary symptoms. No known sick contacts.. Historical: - Allergies: 08:20 No Known Allergies; jl7 - PMHx: 08:20 COPD; Depression; Diabetes - NIDDM; High Cholesterol; Hypertension; Hypothyroidism; jl7 Sleep Apnea; TIA; - Immunization history:: Adult Immunizations up to date. - Social history:: Smoking status: Patient denies any tobacco usage or history of. ROS: 08:33 Constitutional: Negative for fever, chills, and weight loss, Eyes: Negative for injury, sd2 pain, redness, and discharge. 08:33 Abdomen/GI: Negative for abdominal pain, nausea, vomiting, diarrhea. MS/Extremity: Negative for injury and deformity, Skin: Negative for injury, rash, and discoloration, Neuro: Negative for headache, numbness and tingling. 08:33 Cardiovascular: Positive for chest pain, Negative for edema, orthopnea, palpitations. 08:33 Respiratory: Positive for cough, shortness of breath, wheezing, Negative for Exam: 08:33 Constitutional: This is a well developed, well nourished patient who is awake, alert, sd2 and in acute distress. Head/Face: Normocephalic, atraumatic. Eyes: EOMI, normal conjunctiva bilaterally Chest/axilla: Normal chest wall appearance and motion. Nontender with no deformity. Cardiovascular: Regular rate and rhythm with a normal S1 and S2. No gallops, murmurs, or rubs. 2+ distal pulses. Respiratory: Lungs with diminished BS at bilateral bases, otherwise clear, tachypneic with subcostal retractions Abdomen/GI: Soft, non-tender, with normal bowel sounds. No guarding or rebound. No evidence of tenderness throughout. Skin: Warm, dry with normal turgor. Normal color with no rashes, no lesions, and no evidence of cellulitis. MS/ Extremity: Pulses equal, no cyanosis. Neurovascular intact. Full, normal range of motion. Ambulatory without difficulty. Psych: Awake, alert, with orientation to person, place and time. Behavior, mood, and affect are within normal limits. 08:35 ECG was reviewed by the Attending Physician. Sinus tachycardia, rate 105, no STEMI sd2 criteria, RBBB present Vital Signs: 08:17 BP 118 / 78; Pulse 95; Resp 36; Temp 98.5(O); Pulse Ox 72% on Venturi mask; Weight 6 120.2 kg; Height 5 ft. 7 in. (170.18 cm); Pain 8/10; 10:20 BP 124 / 76; Pulse 79; Resp 25; Pulse Ox 98% on CPAP; jl7 11:00 BP 113 / 78; Pulse 85; Resp 19; Pulse Ox 96% ; jl7 11:30 BP 131 / 90; Pulse 81; Resp 24; Pulse Ox 97% ; jl7 12:00 BP 140 / 84; Pulse 83; Resp 24; Pulse Ox 98% on CPAP; jl7 19:29 BP 121 / 78; Pulse 80; Resp 28 S; Pulse Ox 94% on CPAP; Pain 0/10; aa9 08:17 Body Mass Index 41.50 (120.20 kg, 170.18 cm) 6 MDM: 08:30 Patient medically screened. sd2 08:33 Differential diagnosis: Differential diagnosis includes but is not limited to: ACS, sd2 DVT/PE, pneumothorax, dissection, musculoskeletal, anxiety, anemia, electrolyte abnormality, pneumonia, CHF, COPD among others. Data reviewed: vital signs, nurses notes. 10:05 Physician consultation: Geraldo Zimmer was called at 09:30, was contacted at 10:00, 2 regarding admission, and will see patient shortly. 11/24 08:22 Order name: SARS RAPID; Complete Time: 09:18 11/24 08:22 Order name: Basic Metabolic Panel; Complete Time: 09:18 11/24 08:22 Order name: CBC with Diff; Complete Time: 09:18 11/24 08:22 Order name: LFT's; Complete Time: 09:18 11/24 08:22 Order name: Magnesium; Complete Time: 09:18 11/24 08:22 Order name: NT PRO-BNP; Complete Time: 09:18 11/24 08:22 Order name: PT-INR; Complete Time: 09:18 11/24 08:22 Order name: Troponin HS; Complete Time: 09:18 11/24 08:22 Order name: XRAY Chest (1 view); Complete Time: 09:25 11/24 08:22 Order name: Ptt, Activated; Complete Time: 09:18 11/24 08:22 Order name: Procalcitonin; Complete Time: 09:18 11/24 08:22 Order name: ABG; Complete Time: 11:06 11/24 08:33 Order name: SARS-COV-2 RT PCR (Document "Date of Onset" if Symptomatic); Complete Time: 11:11/24 08:33 Order name: Influenza Screen (a \\T\\ B); Complete Time: 11:06 11/24 08:22 Order name: EKG; Complete Time: 08:23 11/24 08:22 Order name: Cardiac monitoring; Complete Time: 08:28 11/24 08:22 Order name: EKG - Nurse/Tech; Complete Time: 08:28 11/24 08:22 Order name: IV Saline Lock; Complete Time: 08:28 11/24 08:22 Order name: Labs collected and sent; Complete Time: 08:28 11/24 08:22 Order name: O2 Per Protocol; Complete Time: 08:28 11/24 08:22 Order name: O2 Sat Monitoring; Complete Time: 08:28 sd2 11/24 15:28 Order name: RAD; Complete Time: 16:52 EDMS Administered Medications: 09:38 Drug: Lasix (furosemide) 80 mg Route: IVP; Site: left antecubital; jh6 12:02 Follow up: Response: No adverse reaction jl7 13:30 Drug: Aspirin Chewable Tablet 324 mg Route: PO; jl7 Disposition Summary: 11/24/21 09:45 Hospitalization Ordered Hospitalization Status: Inpatient Admission sd2 Provider: Geraldo Zimmer sd2 Condition: Stable sd2 Problem: an acute exacerbation sd2 Symptoms: have improved sd2 Bed/Room Type: Standard ms2 Location: Telemetry/MedSurg (Inpatient)(11/24/21 18:42) Room Assignment: [facility](11/24/21 18:42) Diagnosis - Acute and chronic respiratory failure with hypoxia sd2 - Recurrent large left pleural effusion sd2 Forms: - Medication Reconciliation Form sd2 - SBAR form sd2 Signatures: Dispatcher [employer] EDMS Cady Butler RN RN ss Love Buenrostro RN RN jl7 Luz Arrington RN RN jh6 Neda Campbell MD MD sd2 Corrections: (The following items were deleted from the chart) 15:44 09:45 Telemetry/MedSurg (Inpatient) sd2 jl7 15:44 09:45 sd2 jl7 18:42 15:44 [facility] ER HOLD jl7 ss 18:42 15:44 ERHOLD- jl7
[2021-11-24 09:57] LABS: Arterial Blood Carboxyhemoglob 0.7 % (0-1.5); Blood Gas Oxyhemoglobin 93.4 % (94-97); Blood O2 Saturation 96.5 % (92-98.5)
[2021-11-24] MEDS ORDERED: ONDANSETRON 4 MG/2 ML VIAL IV PRN (12:51)
[2021-11-24] MEDS ORDERED: ACETAMINOPHEN 500 MG TAB PO PRN (12:51)
[2021-11-24] MEDS ORDERED: LIDOCAINE 1% MPF 30 ML VIAL ONE (14:03)
--- NOTE | 2021-11-24 14:30 | P.OP ---
Preoperative diagnosis: LEFT Recurrent Pleural Effusion Postoperative diagnosis: LEFT Recurrent Pleural Effusion Primary procedure: Placement of LEFT thoracic pleur X catheter Anesthesia: 1% lidocaine used Estimated blood loss: <5cc Specimen: pleural fluid sent Findings: reddish colored pleural fluid Complications: None Drain(s): Other (Pleru X catheter) Transferred to: Other (ER) Condition: Good
[2021-11-24] MEDS: IPRATROPIUM BROM 0.5MG/2.5ML NEB SCH ×2 (15:00→20:35)
[2021-11-24] MEDS: ALBUTEROL 2.5 MG/3 ML NEB SOL NEB SCH ×2 (15:00→20:35)
--- NOTE | 2021-11-24 15:27 | RAD REPORT ---
EXAM DESCRIPTION: Louie Single View11/24/2021 2:59 pm CLINICAL HISTORY: Device placement/ chest tube insertion IMPRESSION: A left chest tube has been placed. It appears that the tube enters the pleura at the mid to upper left lateral hemithorax. It then extends superiorly and medially. The chest tube then desce nds inferiorly with the tip overlying the medial mid left hemithorax. A pneumothorax is not visualized
[2021-11-24] MEDS ORDERED: ALBUTEROL 2.5 MG/3 ML NEB SOL ONE (15:30)
[2021-11-24 16:35] VITALS: BMI 42.7
[2021-11-24] MEDS ORDERED: MORPHINE 2 MG/ML SYR ONE (16:55)
--- NOTE | 2021-11-24 17:30 | P.HP ---
Certification for Inpatient Patient admitted to: Inpatient With expected LOS: >2 Midnights Practitioner: I am a practitioner with admitting privileges, knowledge of patient current condition, hospital course, and medical plan of care. Services: Services provided to patient in accordance with Admission requirements found in Title 42 Section 412.3 of the Code of Federal Regulations Patient History Date of Service: 11/24/21 Reason for admission: Shortness of breath History of Present Illness: 71-year-old gentleman with a history of lung cancer status post radiation therapy presented to the emergency department with a complaint of shortness of breath. Patient was hospitalized 1 week ago for large left pleural effusion. Thoracentesis was performed and patient subsequently discharged. Checks x-ray done in the emergency department demonstrated large left pleural effusion. He was placed on BiPAP. He has no leukocytosis and troponin is mildly elevated. Patient with a history of lung cancer status post radiation now with recurrent pleural effusion. 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 Patient is hospitalized for further management. Allergies No Known Allergies Allergy (Unverified 11/24/21 13:12) Home Medications: Atorvastatin Calcium [Lipitor] 40 mg PO BEDTIME 01/27/15 Levothyroxine Sodium 200 mcg PO [id number] 01/27/15 Zolpidem Tartrate 10 mg PO BEDTIME 01/27/15 Acetaminophen [Tylenol] 650 mg PO Q4HP PRN 11/16/21 Albuterol Sulfate [Proair Respiclick] 2 puff IH Q6HP PRN 11/16/21 Amlodipine [Norvasc*] 10 mg PO BEDTIME 11/16/21 Aspirin Chewable [Aspirin Chewable*] 1 tab PO DAILY 11/16/21 Cholecalciferol (Vitamin D3) [Vitamin D3] 3 tab PO DAILY 11/16/21 Doxazosin [Cardura*] 8 mg PO DAILY 11/16/21 Fluticasone/Umeclidin/Vilanter [Trelegy Ellipta 200-62.5-25] 1 puff IH NOON 11/16/21 Metoprolol Succinate 50 mg PO BID 11/16/21 predniSONE [Prednisone*] 10 mg PO DAILY 11/16/21 Albuterol Neb [Proventil 0.083% Neb Soln] 2.5 mg NEB [id number] amp 11/17/21 - Past Medical/Surgical History Has patient received pneumonia vaccine in the past: Yes Diabetic: Yes -: DM-NIDDM -: htn -: hyperlipidemia -: hypothyoidism -: COPD -: insomnia -: Lung Cancer -: TIA -: Right Shoulder SX - Family History Father -: Heart disease, Hypertension, Diabetes Mother -: Heart disease, Hypertension, Lung disease - Social History Smoking Status: Former smoker Alcohol use: Yes CD- Drugs: No Caffeine use: Yes Place of Residence: Home Review of Systems Other: Except as documented all other systems reviewed and negative. Physical Examination - Physical Exam General: Alert, In no apparent distress, Oriented x3 HEENT: Mucous membr. moist/pink, Other (Now on oxygen by nasal cannula.), Sclerae nonicteric Neck: JVD not distended Respiratory: Diminished (Left), Other (No crackles) Cardiovascular: No edema, Regular rate/rhythm, Normal S1 S2 Gastrointestinal: Normal bowel sounds, Soft and benign, Non-distended, No tenderness Musculoskeletal: No swelling, No tenderness Integumentary: No rashes, No cyanosis Neurological: Normal strength at 5/5 x4 extr, Cranial nerves 3-12 intact Lymphatics: No axilla or inguinal lymphadenopathy - Studies Laboratory Data (last 24 hrs) 11/24/21 08:25: PT 10.9, INR 0.99, APTT 30.8 11/24/21 08:25: WBC 9.60, Hgb 13.5 L, Hct 40.4, Plt Count 212 11/24/21 08:25: Sodium 139, Potassium 4.1, BUN 19 H, Creatinine 1.23, Glucose 181 H, Magnesium 1.9, Total Bilirubin 0.4, AST 10 L, ALT 33, Alkaline Phosphatase 100 Microbiology Data (last 24 hrs): 11/24/21 08:40 Nasopharnyx Influenza Type A Antigen Screen - Final 11/24/21 08:40 Nasopharnyx Influenza Type B Antigen Screen - Final Assessment and Plan - Problems (Diagnosis) (1) Recurrent pleural effusion on left Current Visit: Yes Status: Acute (2) Acute respiratory failure with hypoxia Current Visit: No Status: Acute (3) COPD (chronic obstructive pulmonary disease) Current Visit: No Status: Acute (4) History of lung cancer Current Visit: No Status: Acute - Plan Admit to the medical floor. Case discussed with pulmonary-Dr. Shen who recommended placement of Pleurx catheter. General surgery consulted, Dr. Agarwal placed Pleurx catheter. Patient eventually weaned off BiPAP to oxygen by nasal cannula. Pleural fluid studies and cytology repeated. Consult pulmonary. Wean off oxygen as tolerated. No indication for antibiotics at this time. Reconcile and continue other home medications.
[2021-11-24] MEDS: FUROSEMIDE 40 MG/4 ML VIAL IV SCH (18:30)
[2021-11-24] MEDS ORDERED: FUROSEMIDE 40 MG/4 ML VIAL ONE (18:51)
[2021-11-24] MEDS ORDERED: ZOLPIDEM TARTRATE 10 MG TABLET PO SCH (22:45)
[2021-11-24] MEDS: MORPHINE 2 MG/ML SYR IV PRN (23:03)
[2021-11-25 03:48] LABS: Absolute Lymphocytes (CBC) 1.4 K/uL (0.7-4.9); Hematocrit 38.8 % (39.6-49.0); Lymphocytes % 14.2 % (15.3-44.8); MCV 90.4 fL (80-100); MPV 8.3 fL (7.6-11.3); RBC Red Blood Cell Count 4.29 M/uL (4.33-5.43)
[2021-11-25 04:04] LABS: Albumin 2.7 g/dL (3.4-5.0); Bilirubin Total 0.3 mg/dL (0.2-1.0); Magnesium 1.8 mg/dL (1.8-2.4); Phosphorus 4.8 mg/dL (2.5-4.9); Potassium 4.3 mmol/L (3.5-5.1); Protein, Total 5.8 g/dL (6.4-8.2)
[2021-11-25] MEDS: ALBUTEROL 2.5 MG/3 ML NEB SOL NEB SCH ×3 (04:10→14:00)
[2021-11-25] MEDS: IPRATROPIUM BROM 0.5MG/2.5ML NEB SCH ×3 (04:10→14:00)
[2021-11-25] MEDS: MORPHINE 2 MG/ML SYR IV PRN ×3 (06:00→15:36)
--- NOTE | 2021-11-25 06:33 | EKG ---
Test Date: 2021-11-24 Test Time: 08:09:21 Safety Inspector: ALP MEASUREMENT RESULTS: Intervals: Rate: 105 NH: 128 QRSD: 138 QT: 352 QTc: 465 [place]: P: 22 NH: 128 QRS: -86 T: 9 INTERPRETIVE STATEMENTS: Sinus tachycardia with fusion complexes Right bundle branch block Left anterior fascicular block Bifascicular block Cannot rule out Inferior infarct (masked by fascicular block?), age undetermined Abnormal ECG Compared to ECG 11/16/2021 12:06:21 Fusion complex(es) now present Myocardial infarct finding now present Sinus rhythm no longer present Bifascicular block still present Electronically Signed On 11-25-21 06:31:22 CDT by Mynor Carmen
[2021-11-25] MEDS: FUROSEMIDE 40 MG/4 ML VIAL IV SCH ×2 (08:32→17:00)
[2021-11-25 10:07] VITALS: O2SAT 95
--- NOTE | 2021-11-25 12:15 | P.CNS ---
Date of Consult: 11/25/21 Reason for Consult: Recurrent pleural effusion Chief Complaint: Shortness of breath History of Present Illness: Patient is 71 years of age recently had a thoracentesis done. Again with worsening shortness of breath and hypoxemia pleural fluid cells were positive for cancer came in and had a Pleurx catheter inserted he is doing much better shortness of breath has improved Allergies No Known Allergies Allergy (Unverified 11/24/21 13:12) Home Medications: Atorvastatin Calcium [Lipitor] 40 mg PO BEDTIME 01/27/15 Levothyroxine Sodium 200 mcg PO [id number] 01/27/15 Zolpidem Tartrate 10 mg PO BEDTIME 01/27/15 Acetaminophen [Tylenol] 650 mg PO Q4HP PRN 11/16/21 Albuterol Sulfate [Proair Respiclick] 2 puff IH Q6HP PRN 11/16/21 Amlodipine [Norvasc*] 10 mg PO BEDTIME 11/16/21 Aspirin Chewable [Aspirin Chewable*] 1 tab PO DAILY 11/16/21 Cholecalciferol (Vitamin D3) [Vitamin D3] 3 tab PO DAILY 11/16/21 Doxazosin [Cardura*] 8 mg PO DAILY 11/16/21 Fluticasone/Umeclidin/Vilanter [Trelegy Ellipta 200-62.5-25] 1 puff IH NOON 11/16/21 Metoprolol Succinate 50 mg PO BID 11/16/21 predniSONE [Prednisone*] 10 mg PO DAILY 11/16/21 Albuterol Neb [Proventil 0.083% Neb Soln] 2.5 mg NEB [id number] amp 11/17/21 - Past Medical/Surgical History Diabetic: Yes -: DM-NIDDM -: htn -: hyperlipidemia -: hypothyoidism -: COPD -: insomnia -: Lung Cancer -: TIA -: 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 -: Right Shoulder SX - Family History Father Medical History: Heart disease, Hypertension, Diabetes Mother Medical History: Heart disease, Hypertension, Lung disease - Social History Smoking Status: Former smoker Alcohol use: Yes CD- Drugs: No Caffeine use: Yes Place of Residence: Home Review of Systems 10-point ROS is otherwise unremarkable General: Weakness Respiratory: Shortness of Breath Physical Examination Temp Pulse Resp BP Pulse Ox 97.7 F 86 20 118/74 95 11/25/21 08:00 11/25/21 08:32 11/25/21 08:00 11/25/21 08:32 11/25/21 08:00 General: Alert, In no apparent distress Neck: Supple Respiratory: Diminished (Diminished on the left side) Cardiovascular: No edema, Regular rate/rhythm, Normal S1 S2 - Problems (1) Malignant pleural effusion Current Visit: Yes Status: Acute Plan: Patient is 71 years of age with a history of left upper lobe lung cancer admitted with recurrent pleural effusion breast catheter was inserted feeling much better vital signs oxygenation stable he has COPD has home oxygen and to discharge home prognosis poor he stage IV lung cancer
--- NOTE | 2021-11-25 14:53 | P.DS ---
Admission Date: 11/24/21 Discharge Date: 11/25/21 Disposition: DC HOME/HOME HEALTH CARE Discharge Condition: FAIR Reason for Admission: Shortness of breath - Problems (1) Recurrent pleural effusion on left Current Visit: Yes Status: Acute (2) Acute respiratory failure with hypoxia Current Visit: No Status: Acute (3) COPD (chronic obstructive pulmonary disease) Current Visit: No Status: Acute (4) History of lung cancer Current Visit: No Status: Acute Brief History of Present Illness: 71-year-old gentleman with a history of lung cancer status post radiation therapy presented to the emergency department with a complaint of shortness of breath. Patient was hospitalized 1 week ago for large left pleural effusion. Thoracentesis was performed and patient subsequently discharged. Chest x-ray done in the emergency department demonstrated large left pleural effusion. He was placed on BiPAP. He has no leukocytosis and troponin is mildly elevated. Patient with a history of lung cancer status post radiation now with recurrent pleural effusion. 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 Patient was hospitalized for further management. Hospital Course: Patient admitted to the medical floor. General surgery consulted, patient was seen by Dr. Agarwal who inserted left Pleurx catheter according to pulmonary-Dr. Shen's recommendation. Serosanguineous fluid was drained. Previous pleural fluid cytology results reviewed and noted malignant cells in the pleural fluid. Patient seen in consultation by Dr. Shen, patient suspected to have stage IV lung cancer. He has been cleared for discharge by Dr. Agarwal who stated he has made arrangement for Pleurx catheter care including device for capping and Vacutainer. Patient request to go home. He is discharged with bronchodilators and given referral to oncology-Dr. Lock. Vital Signs/Physical Exam: Temp Pulse Resp BP Pulse Ox 97.7 F 86 20 118/74 95 11/25/21 08:00 11/25/21 08:32 11/25/21 08:00 11/25/21 08:32 11/25/21 08:00 General: Alert, In no apparent distress, Oriented x3, Obese HEENT: Mucous membr. moist/pink, Sclerae nonicteric Neck: JVD not distended Respiratory: Clear to auscultation bilaterally, Normal air movement Cardiovascular: No edema, Regular rate/rhythm, Normal S1 S2 Gastrointestinal: Soft and benign, Non-distended, No tenderness Musculoskeletal: No swelling Neurological: Normal strength at 5/5 x4 extr Laboratory Data at Discharge: WBC 9.50 K/uL (4.3-10.9) 11/25/21 02:56 Hgb 13.2 g/dL (13.6-17.9) L 11/25/21 02:56 Hct 38.8 % (39.6-49.0) L 11/25/21 02:56 Plt Count 218 K/uL (152-406) 11/25/21 02:56 PT 10.9 SECONDS (9.5-12.5) 11/24/21 08:25 INR 0.99 11/24/21 08:25 APTT 30.8 SECONDS (24.3-36.9) 11/24/21 08:25 Sodium 139 mmol/L (136-145) 11/25/21 02:56 Potassium 4.3 mmol/L (3.5-5.1) 11/25/21 02:56 BUN 24 mg/dL (7-18) H 11/25/21 02:56 Creatinine 1.38 mg/dL (0.55-1.3) H 11/25/21 02:56 Glucose 145 mg/dL (74-106) H 11/25/21 02:56 Phosphorus 4.8 mg/dL (2.5-4.9) 11/25/21 02:56 Magnesium 1.8 mg/dL (1.8-2.4) 11/25/21 02:56 Total Bilirubin 0.3 mg/dL (0.2-1.0) 11/25/21 02:56 AST 9 U/L (15-37) L 11/25/21 02:56 ALT 27 U/L (12-78) 11/25/21 02:56 Alkaline Phosphatase 91 U/L (45-117) 11/25/21 02:56 Home Medications: Atorvastatin Calcium [Lipitor] 40 mg PO BEDTIME 01/27/15 Levothyroxine Sodium 200 mcg PO [id number] 01/27/15 Zolpidem Tartrate 10 mg PO BEDTIME 01/27/15 Acetaminophen [Tylenol] 650 mg PO Q4HP PRN 11/16/21 Albuterol Sulfate [Proair Respiclick] 2 puff IH Q6HP PRN 11/16/21 Amlodipine [Norvasc*] 10 mg PO BEDTIME 11/16/21 Aspirin Chewable [Aspirin Chewable*] 1 tab PO DAILY 11/16/21 Cholecalciferol (Vitamin D3) [Vitamin D3] 3 tab PO DAILY 11/16/21 Doxazosin [Cardura*] 8 mg PO DAILY 11/16/21 Fluticasone/Umeclidin/Vilanter [Trelegy Ellipta 200-62.5-25] 1 puff IH NOON 11/16/21 Metoprolol Succinate 50 mg PO BID 11/16/21 predniSONE [Prednisone*] 10 mg PO DAILY 11/16/21 Albuterol Neb [Proventil 0.083% Neb Soln] 2.5 mg NEB [id number] amp 11/17/21 Albuterol Neb [Proventil 0.083% Neb Soln] 2.5 mg NEB [id number] #120 amp 11/25/21 Ipratropium Neb [Atrovent*] 0.5 mg NEB [id number] #120 amp 11/25/21 Nebulizer [Aeroneb Go Nebulizer] 1 each MC TID #1 unit 11/25/21 New Medications: Ipratropium Neb [Atrovent*] 0.5 mg NEB [id number] #120 amp Albuterol Neb [Proventil 0.083% Neb Soln] 2.5 mg NEB [id number] #120 amp Nebulizer [Aeroneb Go Nebulizer] 1 each MC TID #1 unit Diet: AHA Activity: Ad gale Followup: Brielle Solorzano MD [ACTIVE - CAN ADMIT] - 1-2 Weeks
[2021-11-25 17:42] VITALS: BP 132/59; TEMP 98.8
[2021-11-25] MEDS ORDERED: ZOLPIDEM TARTRATE 10 MG TABLET PO SCH (21:00)
== END 2021-11-25 19:27 | disposition home health service (06) | DRG 180 ==
LOC: ER 08:05 → ERHOLD 12:09 → 4TH 19:36
PROVIDERS: ADMIT Internal Medicine; ATTEND Internal Medicine
PROC: 5A09357 Assistance with Respiratory Ventilation, Less than 24 Consecutive Hours, Continuous Positive Airway Pressure (ICD-10-PCS; principal; 2021-11-24)
PROC: 0W9B30Z Drainage of Left Pleural Cavity with Drainage Device, Percutaneous Approach (ICD-10-PCS; 2021-11-24)
DX: C34.12 Malignant neoplasm of upper lobe, left bronchus or lung (principal); J96.01 Acute respiratory failure with hypoxia; J91.0 Malignant pleural effusion; J44.9 Chronic obstructive pulmonary disease, unspecified; E11.9 Type 2 diabetes mellitus without complications; E03.9 Hypothyroidism, unspecified; E78.5 Hyperlipidemia, unspecified; I10 Essential (primary) hypertension; Z86.73 Personal history of transient ischemic attack (TIA), and cerebral infarction without residual deficits; Z99.81 Dependence on supplemental oxygen; Z79.82 Long term (current) use of aspirin; Z79.52 Long term (current) use of systemic steroids; Z79.890 Hormone replacement therapy; Z85.118 Personal history of other malignant neoplasm of bronchus and lung; Z79.899 Other long term (current) drug therapy; Z87.891 Personal history of nicotine dependence; Z20.822 Contact with and (suspected) exposure to COVID-19
CPT/HCPCS: 36415; 71045; 80048; 80053; 80076; 82805; 82947; 83735; 83880; 84100; 84145; 84484; 85025; 85610; 85730; 87804; 87811; 93005; 94640; 94660; 94760; 96374; 99285; J1940; J2270; U0003